=== PATIENT | female | born 1985 | race Caucasian/White ===

== ENCOUNTER 2023-02-01 13:07 | Emergency (ER) | payer OTHER, SELFPAY ==
--- NOTE | ~2023-02-01 | XR_ITS ---
EXAMINATION: XR CHEST CLINICAL INFORMATION: Chest pain, cough COMPARISON: Chest 04/26/2017 TECHNIQUE: 2 views of the chest were obtained. FINDINGS: The lungs are well expanded. No focal consolidation, interstitial pulmonary edema or pneumothorax. No pleural effusion. No significant abnormality is noted involving the heart, mediastinum, bony thorax or soft tissues. XR/XR chest 2V IMPRESSION: No acute cardiopulmonary disease.
[2023-02-01 13:16] VITALS: BP 112/88; PULSE 87; RESP 16; TEMP 36.9; O2SAT 100; BMI 23.9
--- NOTE | 2023-02-01 13:17 | ED.URI ---
HPI - URI/Sore Throat General Chief Complaint: General Medical Stated Complaint: Feeling Sick Related Data Allergies Allergy/AdvReac Type Severity Reaction Status Date / Time diphenhydramine Allergy Unknown ANXIETY Unverified 01/31/20 15:29 [From BENADRYL] latex Allergy Rash Verified 02/01/23 13:16 garlic [GARLIC] AdvReac Severe STOMACH Unverified 01/31/20 15:29 UPSET onion [ONION] AdvReac Severe STOMACH Unverified 01/31/20 15:29 UPSET FOODS WITH ACID AdvReac Severe STOMACH Uncoded 01/31/20 15:29 UPSET PMFSH Social History Social History Advance Directives: No Advance Directives Information Provided: No Physical Exam Vital Signs: Vital Signs: Last Vital Signs Temp 98.4 F 02/01/23 13:16 Pulse 87 02/01/23 13:16 Resp 16 02/01/23 13:16 BP 112/88 02/01/23 13:16 Pulse Ox 100 02/01/23 13:16 O2 Del Method Room Air 02/01/23 13:16 BMI result Body Mass Index 23.9 Course Course Course Narrative: This is an RME: Additional HPI, ROS, PE not included below will be deferred to primary provider. This is a [id number]-bhw-female, with a hx of anxiety, presenting to the ER with complaint of chills, body aches, headaches, sore throat and cough since last night. Reporting chest pain. reporting urinary frequency and some nausea. Plan: labs, chest xray, ekg, UA ordered. Patient eloped prior to being seen by primary provider and receiving results. Medical Decision Making Lab Data 02/01/23 14:29 02/01/23 14:29 Labs: Lab Results 02/01/23 Range/Units 14:29 WBC 5.4 (4.8-10.8) X10*3/uL RBC 3.86 L (4.20-5.50) X10*6/uL Hgb 11.3 L (12.0-16.0) g/dl Hct 35.1 L (37.0-47.0) % MCV 90.9 (80.0-98.0) fL MCH 29.3 (27.0-33.0) pg MCHC 32.2 (31.0-35.0) g/dl RDW 14.1 (11.0-16.0) % Plt Count 285 (160-400) X10*3/uL MPV 10.4 (9.4-12.3) fL Immature Gran % (Auto) 0.4 (0.0-0.4) % Neut % (Auto) 65.0 (45-73) % Lymph % (Auto) 23.2 (20-40) % [place] % (Auto) 9.6 (2-11) % Eos % (Auto) 0.7 (0-4) % Baso % (Auto) 1.1 (0-2) % Lymph # (Auto) 1.3 (1.2-4.9) X10*3/uL [place] # (Auto) 0.5 (0.1-1.2) X10*3/uL Eos # (Auto) 0.0 (0.0-0.4) X10*3/uL Baso # (Auto) 0.1 (0.0-0.2) X10*3/uL Abs Immat Gran (auto) 0.02 (0.00-0.03) X10*3/uL Absolute Neuts (auto) 3.5 (2.0-8.3) x10*3/uL Absolute Nucleated RBC 0.000 (0.0-0.012) X10*3/uL Nucleated RBC % (auto) 0.0 (0.0-0.2) /100WBC Sodium 140 (135-145) mmol/L Potassium 3.7 (3.3-5.1) mmol/L Chloride 108 (96-108) mmol/L Carbon Dioxide 25 (22-29) mmol/L Anion Gap 11 L (12-20) BUN 5 L (9-16) mg/dL Creatinine 0.77 (0.5-1.4) mg/dL Estim Creat Clear Calc 76.8 Estimated GFR > 60 Random Glucose 92 (60-115) mg/dL Calcium 9.3 (8.4-10.2) mg/dL Total Bilirubin 0.5 (0.0-1.0) mg/dL Direct Bilirubin 0.2 (0.0-0.5) mg/dL AST 17 (5-31) U/L ALT 7 (0-31) U/L Alkaline Phosphatase 70 (39-117) U/L Troponin I High Sens < 2.7 (<3.5-17.0) ng/L Total Protein 7.5 (6.5-8.0) g/dL Albumin 4.2 (3.5-5.0) g/dL Urine Color Yellow Urine Appearance Clear Urine pH 6.5 (5.0-9.0) Ur Specific Honor 1.015 (1.005-1.025) Urine Protein Negative (Neg-Trace) mg/dL Urine Glucose (UA) Negative (Negative) mg/dL Urine Ketones Negative (Negative) mg/dL Urine Blood Moderate (2+) H (Negative) Urine Nitrite Negative (Negative) Ur Leukocyte Esterase Trace H (Negative) Urine RBC 11-20 H (0-2) /HPF Urine WBC 0-5 (0-5) /HPF Ur Squamous Epith Cells 6-10 (0-2) /HPF Urine Bacteria Trace (None Seen) Hyaline Casts 0-2 (0-2) /LPF Urine Test NEGATIVE (NEGATIVE) Influenza Type A (PCR) NEGATIVE (Negative) Influenza Type B (PCR) NEGATIVE (Negative) RSV RNA Qual (PCR) NEGATIVE (Negative) SARS-CoV-2 RNA (RT-PCR) NEGATIVE (Negative) Discharge Plan Discharge Clinical Impression: Acute viral syndrome Patient Disposition: Left W/O Completing Treatment Discharge Date/Time: 02/01/23 18:54
--- NOTE | 2023-02-01 13:19 | ECG_ITS ---
Test Reason : chest pain Blood Pressure : / mmHG Vent. Rate : 071 BPM Atrial Rate : 071 BPM P-R Int : 168 ms QRS Dur : 082 ms QT Int : 384 ms P-R-T Axes : 067 063 049 degrees QTc Int : 417 ms Normal sinus rhythm Normal ECG When compared with ECG of 26-APR-2017 12:54, No significant change was found Referred By: Mylene Winters Electronically Signed By:MAJOR WALL
[2023-02-01 14:39] LABS: MANUAL DIFF FLAG NO
[2023-02-01 14:42] LABS: Basophils Absolute Auto 0.1 X10*3/uL (0.0-0.2); Basophils Percent Auto 1.1 % (0-2); Eosinophils Percent Auto 0.7 % (0-4); Hematocrit 35.1 % (37.0-47.0); Hemoglobin 11.3 g/dl (12.0-16.0); Imm Gran Abs Auto 0.02 X10*3/uL (0.00-0.03); Imm Gran Pct Auto 0.4 % (0.0-0.4); Lymphocytes Absolute Auto 1.3 X10*3/uL (1.2-4.9); Lymphocytes Percent Auto 23.2 % (20-40); Mean Corpuscular HGB Conc 32.2 g/dl (31.0-35.0); Mean Corpuscular Hemoglobin 29.3 pg (27.0-33.0); Mean Corpuscular Volume 90.9 fL (80.0-98.0); Mean Platelet Volume 10.4 fL (9.4-12.3); Monocytes Absolute Auto 0.5 X10*3/uL (0.1-1.2); Monocytes Percent Auto 9.6 % (2-11); Neutrophils Absolute Auto 3.5 x10*3/uL (2.0-8.3); Platelet Count 285 X10*3/uL (160-400); Red Blood Count 3.86 X10*6/uL (4.20-5.50); Red Cell Distribution Width 14.1 % (11.0-16.0); White Blood Count 5.4 X10*3/uL (4.8-10.8)
[2023-02-01 14:48] LABS: Appearance Urine Clear; Color Urine Yellow; Glucose Urine UA Negative (Negative); Leukocyte Esterase Urine Trace (Negative); Nitrite Urine Negative (Negative); PH 6.5 (5.0-9.0); Specific Gravity - Urine 1.015 (1.005-1.025); UMIC TRIGGER UACC YES; UPreg QC Valid YES; Urine Blood Moderate (2+) (Negative); Urine Ketones Negative (Negative); Urine Pregnancy NEGATIVE (NEGATIVE); Urine Protein Negative (Neg-Trace)
[2023-02-01 15:07] LABS: Alanine Aminotransferase 7 U/L (0-31); Albumin Level 4.2 g/dL (3.5-5.0); Alkaline Phosphatase 70 U/L (39-117); Anion Gap 11 (12-20); Aspartate Amino Transferase 17 U/L (5-31); Bilirubin Direct 0.2 mg/dL (0.0-0.5); Bilirubin Total 0.5 mg/dL (0.0-1.0); Blood Urea Nitrogen 5 mg/dL (9-16); Calcium 9.3 mg/dL (8.4-10.2); Carbon Dioxide 25 mmol/L (22-29); Chloride 108 mmol/L (96-108); Creatinine Clr Calc Pharmacy 76.8; Estimated Glomerular Filt Rate > 60; Glucose Random 92 mg/dL (60-115); Potassium 3.7 mmol/L (3.3-5.1); Sodium 140 mmol/L (135-145); Total Protein 7.5 g/dL (6.5-8.0)
[2023-02-01 15:19] LABS: Troponin-I High Sensitivity < 2.7 ng/L (<3.5-17.0)
[2023-02-01 15:22] LABS: Bacteria Urine Trace (None Seen); Hyaline Casts Urine 0-2 /LPF (0-2); Influenza A PCR NEGATIVE (Negative); Influenza B PCR NEGATIVE (Negative); Resp Syncy Virus RNA Qual PCR NEGATIVE (Negative); SARS COV2 PCR INHOUSE NEGATIVE (Negative); WBC Urine 0-5 /HPF (0-5)
== END 2023-02-01 18:54 | disposition left against medical advice (07) ==
PROVIDERS: Physician Assistant Medical; Emergency Provider Emergency Medicine
DX: B34.9 Viral infection, unspecified (principal); J02.9 Acute pharyngitis, unspecified; R05.9 Cough, unspecified; R51.9 Headache, unspecified; M79.10 Myalgia, unspecified site; Z20.822 Contact with and (suspected) exposure to COVID-19; Z20.828 Contact with and (suspected) exposure to other viral communicable diseases
CPT/HCPCS: 0241U; 36415; 71046; 80048; 80076; 81001; 81025; 84484; 85025; 93005; 99283

== ENCOUNTER 2024-02-04 18:17 | Emergency (ER) | payer OTHER, SELFPAY ==
[2024-02-04 18:30] VITALS: BP 138/73; PULSE 114; RESP 20; TEMP 36.9; O2SAT 95; O2SAT 99; BMI 25.6
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
[2024-02-04 19:43] VITALS: BP 125/75; PULSE 85; RESP 18; TEMP 36.9; O2SAT 100
--- OUTSIDE RECORDS SUMMARY | 2024-02-04 20:00 | XMS_ITS | Continuity of Care Document ---
Author Organization [facility] Address [address], [place] [address]- Care Team Providers Care Wool Buyer Name Role Cigarette RollerLokesh Denise MD Primary Care Physician Encounter [facility] [place] Date(s): 10/23/21 - [facility] [address], [address] [place], [place] [address] Allergies, Adverse Reactions, Alerts Substance Reaction Severity Status Benadryl Active Latex Active Immunizations Given and Recorded Vaccine Date Status Refusal Reason tetanus/diphtheria/pertussis, acel(Tdap) 12/17/19 Given tetanus/diphtheria/pertussis, acel(Tdap) 1 10/20/12 Given influenza virus vaccine, inactivated 04/12/18 Give n Fluzone (oldterm) 2 06/14/11 Given tetanus-diphtheria toxoids (Td) 3 06/14/11 Given Not Given Vaccine Date Status Refusal Reason influenza virus vaccine, inactivated 02/02/20 Not Given Patient Refuses 1Admin Note: vis given 06/08/11 2Admin Note: vis given 3Admin Note: VIS GIVEN 04/02/2008 Medications Plan B One-Step 1.5 mg oral tablet 1.5 mg, 1, tablet, By Mouth, Once, # 1 tablet, Refills 0, Tot. Refills 0, Soft Stop, 11/04/21 19:04:00 EDT, Route to Pharmacy Electronically, [facility]/pharmacy #[id number], Partial fill upon patient request if the prescription is for a schedule II opioid drug.,... Start Date: 11/04/21 Status: Ordered Sprintec 0.25 mg-35 mcg oral tablet 1 tablet, By Mouth, Daily, Maintenance, # 84 tablet, 2 Refills, Maintenance, 11/04/21 19:11:00 EDT,[facility]/pharmacy #[id number], Partial fill upon patient request if the prescription is for a schedule II opioid drug., 1 tablet By Mouth Daily,x28 days,Instr:Grace Start Date: 11/04/21 Stop Date: 01/27/22 Status: Ordered Problem List Condition Effective Dates Status Health Status Inform ant Bipolar disease, chronic(Confirmed) Active Chronic gastritis(Confirmed) Active GENERALIZED ANXIETY DISORDER(Confirmed) Active Depression, major(Confirmed) 10/21/08 Active H/O psychiatric hospitalizat ion x2(Confirmed) 1, 2 2009 Active PTSD (Managed by [facility])(Confirmed) Active H/O Suicide ideation(Confirmed) 3 Active 1CIS documentation 3CIS documentation Social History Social History Type Response Smoking Status Former smoker, quit more than 30 days ago entered on: 11/04/21 Sex
--- OUTSIDE RECORDS SUMMARY | 2024-02-04 20:00 | XMS_ITS | Continuity of Care Document ---
Author Organization [facility] Address [address] [place] [address]- Care Team Providers Care Risk Intern Name Role Phone Bhavin Mendoza MD Primary Care Physician Encounter [facility] Date(s): 04/18/19 - 05/31/[address] [address] [place] Attending Physician: Bhavin Mendoza MD Admitting Physician: Bhavin Mendoza MD Allergies, Adverse Reactions, Alerts Substance Reaction Severity Status Latex Active Immunizations Given and Recorded Vaccine Date Status Refusal Reason influenza virus vaccine, inactivated 04/12/18 Give n tetanus/diphtheria/pertussis, acel(Tdap) 1 10/20/12 Given Fluzone (oldterm) 2 06/14/11 Given tetanus-diphtheria toxoids (Td) 3 06/14/11 Given 1Admin Note: vis given 06/08/11 2Admin Note: vis given 3Admin Note: VIS GIVEN 04/02/2008 Medications Colace sodium 100 mg oral capsule 100 mg, 1, capsule, By Mouth, 2 times a day, PRN, # 60 capsule, Refills 5, Tot. Refills 5, Maintenance, for constipation, 07/22/17 10:32:13, Route to Pharmacy Electronically, [id number], [facility]/pharmacy #1972 Start Date: 07/22/17 Stop Date: 01/18/18 Status: Ordered cyclobenzaprine 5 mg oral tablet 1 tablet = 5 mg, By Mouth, 3 times a day, for 7 days, # 21 tablet, 0 Refills, Acute 06/05/19 14:19:00 EST, 05/29/19 14:19:00 EST, Tablet, [facility]/pharmacy #1972, 159, cm, 05/29/19 13:36:00 EST, Height, 58.7, kg, 11/19/18 21:43:00 EDT, Dry Weight Start Date: 05/29/19 Stop Date: 06/05/19 Status: Ordered ibuprofen 600 mg oral tablet 600 mg, 1, tablet, By Mouth, 4 times a day, PRN, with food or milk, # 40 tablet, Refills 1, Tot. Refills 1, Maintenance, for pain, 05/29/19 14:18:00 EST, Route to Pharmacy Electronically, [facility]/pharmacy #1972, 159, cm, 05/29/19 13:36:00 EST, Height, 58.... Start Date: 05/29/19 Status: Ordered levonorgestrel 1.5 mg oral tablet 1.5 mg, 1, tablet, By Mouth, Once, # 1 tablet, Refills 0, Tot. Refills 0, Soft Stop, 02/20/19 16:12:31 EDT, Route to Pharmacy Electronically, [id number], [facility]/pharmacy #1972 Start Date: 02/20/19 Status: Ordered metroNIDAZOLE 500 mg oral tablet 1 tablet = 500 mg, By Mouth, Every 12 hours, for 7 days, # 14 tablet, 0 Refills, Acute 06/07/19 11:54:00 EST, 05/31/19 11:54:00 EST, Tablet, [facility]/pharmacy #1972, 159, cm, 05/29/19 13:36:00 EST, Height, 58.7, kg, 11/19/18 21:43:00 EDT, Dry Weight Start Date: 05/31/19 Stop Date: 06/07/19 Status: Ordered omeprazole 20 mg oral enteric coated capsule 1 capsule = 20 mg, By Mouth, Daily, before a meal, # 30 capsule, 11 Refills, Maintenance, 08/08/18 15:03:20 EDT, EC Capsule Start Date: 08/08/18 Stop Date: 08/03/19 Status: Ordered Problem List Condition Effective Dates Status Health Status Inform ant Bipolar disease, chronic(Confirmed) Active GENERALIZED ANXIETY DISORDER(Confirmed) Active Goal-quit smoking(Confirmed) Active Depression, major(Confirmed) 10/21/08 Active PTSD (Managed by [facility])(Confirmed) Active Social History Social History Type Response Smoking Status Former smoker; Tobac co user in household: Yes; Number of years: 10; Total pack years: 5; Started at age: 17; Stopped at age: 28; entered on: 09/06/14 Sex
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
--- OUTSIDE RECORDS SUMMARY | 2024-02-04 20:00 | XMS_ITS | Continuity of Care Document ---
Author Organization [facility] Address [address] [place] [address]- Care Team Providers Care Shrinking Machine Operator Name Role Phone Kelly SUMNER, Bhavin Rodas Primary Care Physician Encounter [facility] [place] Date(s): 07/25/19 - 08/04/[address] [address]- [facility] Attending Physician: Neo Russell Admitting Physician: AdmNeo bowles Referring Physician: AdmtrNeo Allergies, Adverse Reactions, Alerts [...] constipation, 07/22/17 10:32:13, Route to Pharmacy Electronically, [id number], [facility]/pharmacy #1972 Start Date: 07/22/17 Stop Date: 01/18/18 Status: Ordered omeprazole 20 mg oral enteric coated capsule 1 capsule = 20 mg, By Mouth, Daily, before a meal, # 30 capsule, 11 Refills, Maintenance, 08/08/18 15:03:20 EDT, EC Capsule Start Date: 08/08/18 Stop Date: 08/03/19 Status: Ordered Multivitamins with Folic Acid 1 mg oral tablet 1 tablet, By Mouth, Daily, # 90 tablet, 3 Refills, Maintenance, 06/08/19 10:58:00 EST, Tablet, [facility]/pharmacy #1972, 1 tablet By Mouth Daily, 159, cm, 05/29/19 13:36:00 EST, Height, 58.7, kg, 11/19/18 21:43:00 EDT, Dry Weight Start Date: 06/08/19 Status: Ordered Problem List Condition Effective Dates Status Health Status Inform ant H/O Anemia(Confirmed) Active Bipolar disease, chronic(Confirmed) Active GENERALIZED ANXIETY DISORDER(Confirmed) Active H/O gastritis(Confirmed) 1 Active Depression, major(Confirmed) 10/21/08 Active Advanced maternal age in multigravida(Confirmed) Active H/O psychiatric hospitalizat ion x2(Confirmed) 2, 3 2009 Active PTSD (Managed by [facility])(Confirmed) Active (Confirmed) Active H/O Suicide ideation(Confirmed) 4 Active 1acid reflux- GI notes in CIS 2CIS documentation 4CIS documentation Social History Social History Type Response Smoking Status Former smoker; Tobac co user in household: Yes; Number of years: 10; Total pack years: 5; Started at age: 17; Stopped at age: 28; entered on: 09/06/14 Sex Female
--- OUTSIDE RECORDS SUMMARY | 2024-02-04 20:00 | XMS_ITS | Continuity of Care Document ---
Author Organization [facility] Address [address] [place] [address]- Care Team Providers Care Deployment Engineer Name Role Phone Bhavin Mendoza MD Primary Care Physician Encounter [facility] [place] Date(s): 04/19/19 - 05/23/[address] [address]- [facility] Attending Physician: Bhavin Mendoza MD Admitting Physician: [...] constipation, 07/22/17 10:32:13, Route to Pharmacy Electronically, [id number], [facility]/pharmacy #1972 Start Date: 07/22/17 Stop Date: 01/18/18 Status: Ordered levonorgestrel 1.5 mg oral tablet 1.5 mg, 1, tablet, By Mouth, Once, # 1 tablet, Refills 0, Tot. Refills 0, Soft Stop, 02/20/19 16:12:31 EDT, Route to Pharmacy Electronically, [id number], [facility]pharmacy #1972 Start Date: 02/20/19 Status: Ordered omeprazole 20 mg oral enteric [...] Depression, major(Confirmed) 10/21/08 Active PTSD (Managed by [facility])(Confirmed) Active Social History Social History Type Response Smoking Status Former smoker; Tobac co user in household: Yes; Number of years: 10; Total pack years: 5; Started at age: 17; Stopped at age: 28; entered on: 09/06/14 Sex
--- OUTSIDE RECORDS SUMMARY | 2024-02-04 20:00 | XMS_ITS | Continuity of Care Document ---
Author Organization [facility] Address [address] [place] [address]- Care Team Providers Care Cash Teller Name Role Active Directory Systems AdministratorLokesh Denise MD Primary Care Physician Encounter [facility] R [id number] Date(s): 08/31/23 - 10/05/[address] [address] Attending Physician: Joel Montero MD Admitting Physician: Joel Montero MD Allergies, Adverse Reactions, Alerts Substance Reaction [...] given 3Admin Note: VIS GIVEN 04/02/2008 Medications metroNIDAZOLE 500 mg oral tablet 1 tablet = 500 mg, By Mouth, Every 12 hours, # 14 tablet, 0 Refills, Soft Stop, 09/07/23 11:46:00 EDT, Tablet, [facility]/pharmacy #[id number], Partial fill upon patient request if the prescription is for a schedule II opioid drug., 158, cm, 09/07/23 11:13:00 EDT,... Start Date: 09/07/23 Stop Date: 09/14/23 Status: Ordered Problem List Condition Confirmation Course Effective Dates Status H ealth Status Informant Bipolar disease, chronic Confirmed Active Chronic gastritis Confirmed Active GENERALIZED ANXIETY DISORDER Confirmed Active Depression, major Confirmed 10/21/08 Active H/O psychiatric hospitalization x2 1, 2 Confirmed 2009 Active PTSD (Managed by [facility]) Confirmed Active H/O Suicide ideation 3 Confirmed Active 1CIS documentation 3CIS documentation Social History Social History Type Response Smoking Status Former smoker, quit more than 30 days ago entered on: 11/04/21 Sex Patient Care team information Care Team Personnel Name: Banker SUMNER, Lokesh Lemus Position: [facility] Physician - Primary Care Member Role: PCP Address: Address: [address] [place] [address] Name: Bhavna VEGA, Jose Quintana Position: [facility] RN Member Role: Primary Care Nurse Care Team Related Persons Name: KRISTAL FARMER Address: [address] [place] [address] Name: DANIEL FARMER Address: [address] [place] [address] Name: KYUNG SHERIFF Address: [place] [address] Name: JON MIGUEL Address: [address] [place] [address] Name: GUSTAVO GAMEZ Address: [address] Address: [address] [place] [address]
--- OUTSIDE RECORDS SUMMARY | 2024-02-04 20:00 | XMS_ITS | Continuity of Care Document ---
Author Organization [facility] Address [address] [place] [address]- Care Team Providers Care Wellness Educator Name Role Phone Bhavin Mendoza MD Primary Care Physician Encounter [facility] [place] Date(s): 02/05/20 - 03/06/[address] [address]- [facility] Allergies, Adverse Reactions, Alerts Substance Reaction Severity [...] constipation, 07/22/17 10:32:13, Route to Pharmacy Electronically, [id number], [facility]/pharmacy #1972 Start Date: 07/22/17 Stop Date: 01/18/18 Status: Ordered famotidine 10 mg oral tablet 1 tablet = 10 mg, By Mouth, 2 times a day, # 28 tablet, 0 Refills, Maintenance, 08/03/20 16:14:00 EDT, Tablet, [facility], 158, cm, 12/17/19 15:52:00 EDT, Height, 62, kg, 07/26/19 14:27:00 EDT, Dry Weight Start Date: 12/17/19 Status: Ordered ferrous sulfate 325 mg oral tablet 1 tablet = 325 mg, By Mouth, 3 times a day, # 120 tablet, 2 Refills, Maintenance, 01/04/20 8:50:00 EDT, [facility], 158, cm, 01/03/20 13:07:00 EDT, Height, 73.2, kg, 12/27/19 21:44:00 EDT, Dry Weight Start Date: 01/04/20 Status: Ordered omeprazole 20 mg oral enteric [...] Effective Dates Status Health Status Inform ant Anemia in (Confirmed) Active Bipolar disease, chronic(Confirmed) Active GENERALIZED ANXIETY DISORDER(Confirmed) Active H/O gastritis(Confirmed) 1 Active Depression, major(Confirmed) 10/21/08 Active Advanced maternal age in multigravida(Confirmed) Active H/O psychiatric hospitalizat ion x2(Confirmed) 2, 3 2009 Active PTSD (Managed by [facility])(Confirmed) Active (Confirmed) Active H/O Suicide ideation(Confirmed) 4 Active 1acid reflux- GI notes in CIS 2CIS documentation 99897/2010 4CIS documentation Social History Social History Type Response Smoking Status Former smoker; Tobac co user in household: Yes; Number of years: 10; Total pack years: 5; Started at age: 17; Stopped at age: 28; entered on: 09/06/14 Sex
--- OUTSIDE RECORDS SUMMARY | 2024-02-04 20:00 | XMS_ITS | Continuity of Care Document ---
Author Organization [facility] Address [address] [place] [address]- Care Team Providers Care Fire Chief Name Role Phone Bhavin Mendoza MD Primary Care Physician Encounter [facility] [place] Date(s): 03/17/19 - 05/03/[address] [address]- [facility] Attending Physician: Ashlee Valverde MD Admitting Physician: Ashlee Valverde MD Allergies, Adverse Reactions, Alerts Substance Reaction [...] constipation, 07/22/17 10:32:13, Route to Pharmacy Electronically, [id number], [facility]/pharmacy #1972 Start Date: 07/22/17 Stop Date: 01/18/18 Status: Ordered levonorgestrel 1.5 mg oral tablet 1.5 mg, 1, tablet, By Mouth, Once, # 1 tablet, Refills 0, Tot. Refills 0, Soft Stop, 02/20/19 16:12:31 EDT, Route to Pharmacy Electronically, [id number], [facility] Start Date: 02/20/19 Status: Ordered [...] Depression, major(Confirmed) 10/21/08 Active PTSD (Managed by [facility])(Confirmed) Active Social History Social History Type Response Smoking Status Former smoker; Tobac co user in household: Yes; Number of years: 10; Total pack years: 5; Started at age: 17; Stopped at age: 28; entered on: 09/06/14 Sex
--- OUTSIDE RECORDS SUMMARY | 2024-02-04 20:00 | XMS_ITS | Continuity of Care Document ---
Author Organization [facility] Address [address] [place] [address]- Care Team Providers Care Mechanic Insulator Name Role Sock Knitting Machine OperatorLokesh Denise MD Primary Care Physician Encounter [facility] Date(s): 10/05/22 - 11/04/[address] [address] Allergies, Adverse Reactions, Alerts Substance Reaction Severity [...] vis given 3Admin Note: VIS GIVEN 04/02/2008 Problem List Condition Confirmation Course Effective Dates Status H ealth Status Informant Bipolar disease, chronic Confirmed Active Chronic gastritis Confirmed Active GENERALIZED ANXIETY DISORDER Confirmed Active Depression, major Confirmed 10/21/08 Active H/O psychiatric hospitalization x2 1, 2 Confirmed 2009 Active PTSD (Managed by [facility]) Confirmed Active H/O Suicide ideation 3 Confirmed Active 1CIS documentation 3CIS documentation Social History Social History Type Response Smoking Status Former smoker, quit more than 30 days ago entered on: 11/04/21 Sex Patient Care team information Care Team Personnel Name: Lokesh Denise MD Position: S Physician - Primary Care Member Role: PCP Address: Address: [address] [place] [id number] Name: Bhavna VEGA, Jose Quintana Position: S RN Member Role: Primary Care Nurse Care Team Related Persons Name: SHAYY FARMERJARVIS Address: home [address] [place] [address] Name: DANIEL FARMER Address: home [address] [place] [address] Name: KYUNG SHERIFF Address: [place] [address] Name: JON MIGUEL Address: home [address] [place] [address] Name: GUSTAVO GAMEZ Address: [address] Address: home [address] [place] [address]
--- OUTSIDE RECORDS SUMMARY | 2024-02-04 20:00 | XMS_ITS | Continuity of Care Document ---
Author Organization [facility] Address [address] [place] [address]- Care Team Providers Care Service Associate Name Role Phone Bhavin Mendoza MD Primary Care Physician [place] [facility] [place]14/[place] - 06/14/[address] [address]- [facility] Discharge Disposition: A-D/C Home Attending Physician: Sunny Marsh MD Admitting Physician: Sunny Marsh MD Referring Physician: Not on Staff, Referring MD Allergies, Adverse Reactions, Alerts Substance Reaction [...] constipation, 07/22/17 10:32:13, Route to Pharmacy Electronically, [id number], [facility]/pharmacy #1972 Start Date: 07/22/17 Stop Date: 01/18/18 Status: Ordered ibuprofen 600 mg oral tablet 600 mg, 1, tablet, By Mouth, 4 times a day, PRN, with food or milk, # 40 tablet, Refills 1, Tot. Refills 1, Maintenance, for pain, 05/29/19 14:18:00 EST, Route to Pharmacy Electronically, [facility]/pharmacy #1972, 159, cm, 05/29/19 13:36:00 EST, Height, 58.... Start Date: 05/29/19 Status: Ordered levonorgestrel 1.5 mg oral tablet 1.5 mg, 1, tablet, By Mouth, Once, # 1 tablet, Refills 0, Tot. Refills 0, Soft Stop, 02/20/19 16:12:31 EDT, Route to Pharmacy Electronically, [id number], [facility]/pharmacy #1972 Start Date: 02/20/19 Status: Ordered omeprazole [...] 3 Refills, Maintenance, 06/08/19 10:58:00 EST, Tablet, [facility]/pharmacy #1972, 1 tablet By Mouth Daily, 159, cm, 05/29/19 13:36:00 EST, Height, 58.7, kg, 11/19/18 21:43:00 EDT, Dry Weight Start Date: 06/08/19 Status: Ordered Problem List Condition Effective Dates Status Health Status Inform ant Bipolar disease, chronic(Confirmed) Active GENERALIZED ANXIETY DISORDER(Confirmed) Active Goal-quit smoking(Confirmed) Active Depression, major(Confirmed) 10/21/08 Active PTSD (Managed by [facility])(Confirmed) Active Results Radiology Reports * Exam Date Time Procedure Performing Provider Status 06/14/19 10:38 AM Chest 2 Views Frontal and Lat Bebeto Esquivel (Verified) Notes: (Chest 2 Views Frontal and Lat) Reason For Exam: Angina RESULT: Chest 2 Views Frontal and Lat Chest 2 Views Frontal and Lat INDICATION: Palpitations and left-sided chest pain. COMPARISON: 10/29/2016. FINDINGS: LINES AND TUBES: None. LUNGS AND PLEURA: Clear lungs. Normal pulmonary vascularity. No pleural effusion. No pneumothorax. HEART, MEDIASTINUM AND MAIKEL: Heart is normal in size. Normal mediastinal and hilar contour. BONES AND SOFT TISSUES: No acute abnormality. IMPRESSION: No acute abnormality. I have personally reviewed the images and I agree with this report. WSN: [id number] Dictated By: Graeme Gomez MD Dictated Date/Time: 06/14/19 10:49 a Reviewed By: Houston Rodrigues MD Signed By: Houston Rodrigues MD Signed Date/Time: 06/14/19 10:54 am Transcribed By: CLARIBEL Transcribed Date/Time: 06/14/19 10:43 am Vital Signs Most recent to oldest [Reference Range]: 1 2 3 Height 158 cm (06/14/19 8:26 AM) Weight 59.5 kg (06/14/19 8:26 AM) Oxygen Saturation [94-100 %] 100 % (06/14/19 9:32 AM) 100 % (06/14/19 8:26 AM) 100 % (06/14/19 8:23 AM) Pulse Rate [55-90 bpm] 101 bpm *H* (06/14/19 9:32 AM) 106 bpm *H* (06/14/19 8:26 AM) 114 bpm *H* (06/14/19 8:23 AM) Blood Pressure [90-138/55-84 mm Hg] 119/63mm Hg (06/14/19 9:32 AM) 104/68mm Hg (06/14/19 8:26 AM) Respiratory Rate [16-30 br/min] 17 br/min (06/14/19 9:32 AM) 18 br/min (06/14/19 8:26 AM) Temperature [96.8-100.4 DegF] 97.8 DegF (06/14/19 8:26 AM) Mode of Delivery (Oxygen) Room air (06/14/19 9:32 AM) Room air (06/14/19 8:26 AM) Room air (06/14/19 8:23 AM) Blood pressure sites Arm, left (06/14/19 9:32 AM) Arm, left (06/14/19 8:26 AM) Temperature Route Oral (06/14/19 8:26 AM) Dry Weight 59.5 kg (06/14/19 8:26 AM) Weight Obtained Via Standing scale (06/14/19 8:26 AM) Dry Weight Obtained Via Standing scale (06/14/19 8:26 AM) Social History Social History Type Response Smoking Status Former smoker; Tobac co user in household: Yes; Number of years: 10; Total pack years: 5; Started at age: 17; Stopped at age: 28; entered on: 09/06/14 Sex
--- OUTSIDE RECORDS SUMMARY | 2024-02-04 20:00 | XMS_ITS | Continuity of Care Document ---
Author Organization [facility] Address [address] [place] [address]- Care Team Providers Care Manufacturing Engineering Director Name Role Embedded Software Programmer MD, Lokesh Lemus Primary Care Physician [phone] Encounter [facility] Date(s): 07/09/20 - 09/04/[address] [address] Attending Physician: Alexandra Ramesh CNM Admitting Physician: Alexandra Ramesh CNM Allergies, Adverse Reactions, Alerts Substance Reaction Severity [...] constipation, 07/22/17 10:32:13, Route to Pharmacy Electronically, [id number], [facility]/pharmacy #1972 Start Date: 07/22/17 Stop Date: 01/18/18 Status: Ordered famotidine 10 mg oral tablet 1 tablet = 10 mg, By Mouth, 2 times a day, # 28 tablet, 0 Refills, Maintenance, 12/17/19 16:14:00 EDT, Tablet, [facility], 158, cm, [...] 2, 3 2009 Active PTSD (Managed by [facility])(Confirmed) Active (Confirmed) Active H/O Suicide ideation(Confirmed) 4 Active 1acid reflux- GI notes in CIS 2CIS documentation 4CIS documentation Social History Social History Type Response Smoking Status Former smoker; Tobac co user in household: Yes; Number of years: 10; Total pack years: 5; Started at age: 17; Stopped at age: 28; entered on: 09/06/14 Sex
--- OUTSIDE RECORDS SUMMARY | 2024-02-04 20:00 | XMS_ITS | Continuity of Care Document ---
Author Organization [facility] Address [address] [place] [address]- Care Team Providers Care Guide Changer Name Role Phone Kelly SUMNER, Bhavin Rodas Primary Care Physician Encounter [facility] [place] Date(s): 06/08/19 - 06/18/[address] [address]- [facility] Attending Physician: Neo Russell Admitting Physician: Neo Russell Referring Physician: Neo Russell Allergies, Adverse Reactions, Alerts Substance Reaction Severity [...] constipation, 07/22/17 10:32:13, Route to Pharmacy Electronically, [id number], [facility]/pharmacy #1972 Start Date: 07/22/17 Stop Date: 01/18/18 Status: Ordered ibuprofen 600 mg oral tablet 600 mg, 1, tablet, By Mouth, 4 times a day, PRN, with food or milk, # 40 tablet, Refills 1, Tot. Refills 1, Maintenance, for pain, 05/29/19 14:18:00 EST, Route to Pharmacy Electronically, [facility]/pharmacy #1972, 159, cm, 05/29/19 13:36:00 EST, Height, 58.... Start Date: 05/29/19 Status: Ordered levonorgestrel 1.5 mg oral tablet 1.5 mg, 1, tablet, By Mouth, Once, # 1 tablet, Refills 0, Tot. Refills 0, Soft Stop, 02/20/19 16:12:31 EDT, Route to Pharmacy Electronically, [id number], [facility]/pharmacy #1972 Start Date: 02/20/19 Status: Ordered omeprazole [...] 3 Refills, Maintenance, 06/08/19 10:58:00 EST, Tablet, [facility]/pharmacy #1972, 1 tablet By Mouth Daily, 159, cm, 05/29/19 13:36:00 EST, Height, 58.7, kg, 11/19/18 21:43:00 EDT, Dry Weight Start Date: 06/08/19 Status: Ordered Problem List Condition Effective Dates Status Health Status Inform ant Bipolar disease, chronic(Confirmed) Active GENERALIZED ANXIETY DISORDER(Confirmed) Active Goal-quit smoking(Confirmed) Active Depression, major(Confirmed) 10/21/08 Active PTSD (Managed by [facility])(Confirmed) Active Social History Social History Type Response Smoking Status Former smoker; Tobac co user in household: Yes; Number of years: 10; Total pack years: 5; Started at age: 17; Stopped at age: 28; entered on: 09/06/14 Sex
--- OUTSIDE RECORDS SUMMARY | 2024-02-04 20:00 | XMS_ITS | Continuity of Care Document ---
Author Organization [facility] Address [address] [place] [address]- Care Team Providers Care Store Sales Consultant Name Role Phone Kelly SUMNER, Bhavin Rodas Primary Care Physician Encounter [facility] [place] Date(s): 01/11/20 - 02/17/[address] [address]- [facility] Attending Physician: Not on Staff, Attending MD Allergies, Adverse Reactions, Alerts Substance Reaction [...] constipation, 07/22/17 10:32:13, Route to Pharmacy Electronically, [id number], [facility] Start Date: 07/22/17 Stop Date: 01/18/18 Status: Ordered famotidine 10 mg oral tablet 1 tablet = 10 mg, By Mouth, 2 times a day, # 28 tablet, 0 Refills, Maintenance, 12/17/19 16:14:00 EDT, Tablet, [facility]/pharmacy #1972, 158, cm, 12/17/19 15:52:00 EDT, Height, [...] Dry Weight Start Date: 01/04/20 Status: Ordered ibuprofen 600 mg oral tablet 600 mg, 1, tablet, By Mouth, Every 6 hours, PRN, # 30 tablet, Refills 1, Tot. Refills 1, Acute 02/23/20 15:47:00 EDT, Pain , Moderate, 02/03/20 15:47:00 EDT, Route to Pharmacy Electronically, [facility]/pharmacy #[id number], 158, cm, 02/03/20 15:36:00 EDT, Height,... Start Date: 02/03/20 Stop Date: 02/23/20 Status: Ordered omeprazole 20 mg oral enteric coated capsule 1 capsule = 20 mg, By Mouth, Daily, before a meal, # 30 capsule, 11 Refills, Maintenance, 08/08/18 15:03:20 EDT, EC Capsule Start Date: 08/08/18 Stop Date: 08/03/19 Status: Ordered oxyCODONE 5 mg oral tablet 5 mg, 1, tablet, By Mouth, Every 6 hours, PRN, # 12 tablet, Refills 0, Tot. Refills 0, Acute 02/23/20 15:47:00 EDT, as needed for pain, 02/03/20 15:47:00 EDT, Route to Pharmacy Electronically, [facility]/pharmacy #[id number], Partial fill upon patient request, 158... Start Date: 02/03/20 Stop Date: 02/23/20 Status: Ordered Multivitamins with Folic Acid 1 mg oral tablet 1 tablet, By Mouth, Daily, # 90 tablet, 3 Refills, Maintenance, 06/08/19 10:58:00 EST, Tablet, [facility]/pharmacy #1972, 1 tablet By Mouth Daily, 159, cm, 05/29/19 13:36:00 EST, Height, 58.7, kg, 11/19/18 21:43:00 EDT, Dry Weight Start Date: 06/08/19 Status: Ordered simethicone 80 mg oral tablet 1 tablet = 80 mg, Chew, 3 times a day after meals, PRN as needed for gas, # 60 tablet, 0 Refills, Acute 02/23/20 15:47:00 EDT, 02/03/20 15:47:00 EDT, Tablet, [facility]/pharmacy #[id number], 158, cm, 02/03/20 15:36:00 EDT, Height, 73, kg, 02/01/20 9:00:00 EDT, Dry... Start Date: 02/03/20 Stop Date: 02/23/20 Status: Ordered Problem List Condition Effective Dates Status Health Status Inform ant Anemia in (Confirmed) Active Bipolar disease, chronic(Confirmed) Active GENERALIZED ANXIETY DISORDER(Confirmed) Active H/O gastritis(Confirmed) 1 Active Depression, major(Confirmed) 10/21/08 Active Advanced maternal age in multigravida(Confirmed) Active H/O psychiatric hospitalizat ion x2(Confirmed) 2, 3 2009 Active PTSD (Managed by [facility])(Confirmed) Active (Confirmed) Active H/O Suicide ideation(Confirmed) 4 Active 1acid reflux- GI notes in CIS 2CIS documentation 4CIS documentation Social History Social History Type Response Smoking Status Former smoker; Tobac co user in household: Yes; Number of years: 10; Total pack years: 5; Started at age: 17; Stopped at age: 28; entered on: 09/06/14 Sex
--- OUTSIDE RECORDS SUMMARY | 2024-02-04 20:00 | XMS_ITS | Continuity of Care Document ---
Author Organization [facility] Address [address] [place] [address]- Care Team Providers Care Chip Drier Name Role Undercollar MakerLokesh Denise MD Primary Care Physician Encounter [facility] Date(s): 08/09/23 - 09/08/[address] [address] Allergies, Adverse Reactions, Alerts Substance [...] Refills, Soft Stop, 09/07/23 11:46:00 EDT, Tablet, [id number], Partial fill upon patient request if the [...] 2 Confirmed 2009 Active PTSD (Managed by [facility]) Confirmed Active H/O Suicide ideation 3 Confirmed Active 1CIS documentation 3CIS documentation Social History Social History Type Response Smoking Status Former smoker, quit more than 30 days ago entered on: 11/04/21 Sex Patient Care team information Care Team Personnel Name: Banker SUMNER, Lokesh Lemus Position: [facility] Physician - Primary Care Member Role: PCP Address: Address: [address] [place] [address] Name: Bhavna VEGA, Jose Quintana Position: [facility] RN Member Role: Primary Care Nurse Care Team Related Persons Name: KRISTAL FARMER Address: home [address] [place] [address] Name: DANIEL FARMER Address: home [address] [place] [address] Name: KYUNG SHERIFF Address: [place] [address] Name: JON MIGUEL Address: home [address] [place] [address] Name: GUSTAVO GAMEZ Address: [address] Address: home [address] [place] [address]
--- OUTSIDE RECORDS SUMMARY | 2024-02-04 20:00 | XMS_ITS | Continuity of Care Document ---
Author Organization [facility] Address [address] [place] [address]- Care Team Providers Care Utility Systems Repairer Operator Name Role Feather Curling Machine Operator , Lokesh Lemus Primary Care Physician [facility] Date(s): 11/[facility] - [facility] [address] [address] Attending Physician: Not on Staff, Attending MD [...] Note: VIS GIVEN 04/02/2008 Problem List Condition Effective Dates Status Health Status Inform ant Bipolar disease, chronic(Confirmed) Active Chronic gastritis(Confirmed) Active GENERALIZED ANXIETY DISORDER(Confirmed) Active Depression, major(Confirmed) 10/21/08 Active H/O psychiatric hospitalizat ion x2(Confirmed) 1, 2 2009 Active PTSD (Managed by [facility])(Confirmed) Active H/O Suicide ideation(Confirmed) 3 Active 1CIS documentation 3CIS documentation Social History Social History Type Response Smoking Status 5-9 cigarettes (betw een 1/4 to 1/2 pack)/day in last 30 days; Interested in cessation: No entered on: 11/03/20 Sex
--- OUTSIDE RECORDS SUMMARY | 2024-02-04 20:00 | XMS_ITS | Continuity of Care Document ---
Author Organization [facility] Address [address] [place] [address]- Care Team Providers Care Hr Clerk Name Role Paster OperatorLokesh Denise MD Primary Care Physician [phone] Encounter [facility] [place] Date(s): 11/30/22 - 12/30/[address] [address] Allergies, Adverse Reactions, Alerts Substance Reaction [...] 2 Confirmed 2009 Active PTSD (Managed by [facility]) Confirmed Active H/O Suicide ideation 3 Confirmed Active 1CIS documentation 3CIS documentation Social History Social History Type Response Smoking Status Former smoker, quit more than 30 days ago entered on: 11/04/21 Sex Patient Care team information Care Team Personnel Name: Lokesh Denise MD Position: [facility] Physician - Primary Care Member Role: PCP Address: Address: [address] [place] [address] Name: Bhavna VEGA, Jose Quintana Position: S RN Member Role: Primary Care Nurse Care Team Related Persons Name: KRISTAL FARMER Address: home [address] [place] [address] Name: DANIEL FARMER Address: [address] [place] [address] Name: KYUNG SHERIFF Address: [place] [address] Name: JON MIGUEL Address: home [address] [place] [address] Name: GUSTAVO GAMEZ Address: [address] Address: [address] [place] [address] [place]
--- OUTSIDE RECORDS SUMMARY | 2024-02-04 20:00 | XMS_ITS | Continuity of Care Document ---
Author Organization [facility] Address [address] [place] [address]- Care Team Providers Care Wool Sorter Name Role Technical WriterLokesh Denise MD Primary Care Physician [place] [facility] [place] [facility] [place] [id number] Date(s): 10/01/22 - 10/31/[address] [address] Attending Physician: Admtr, Neo Allergies, Adverse Reactions, Alerts Substance Reaction Severity [...] 2 Confirmed 2009 Active PTSD (Managed by [facility]) Confirmed Active H/O Suicide ideation 3 Confirmed Active 1CIS documentation 3CIS documentation Social History Social History Type Response Smoking Status Former smoker, quit more than 30 days ago entered on: 11/04/21 Sex Patient Care team information Care Team Personnel Name: Lokesh Denise MD Position: S Physician - Primary Care Member Role: PCP Address: Address: [address] [place] [address]- Name: Bhavna RN, Jose Quintana Position: S RN Member Role: Primary Care Nurse Care Team Related Persons Name: SHAYY FARMERJARVIS Address: [address] [place] [address] Name: FARMERSHAYY GUEVARAEDES Address: home [address] [place] [address] Name: KYUNG SHERIFF Address: [place] [address] Name: JON MIGUEL Address: [address] [place] [address] Name: GUSTAVO GAMEZ Address: [address] Address: [address] [place] [address]
--- OUTSIDE RECORDS SUMMARY | 2024-02-04 20:00 | XMS_ITS | Continuity of Care Document ---
Author Organization [facility] Address [address] [place] [address]- Care Team Providers Care Surgical Supervisor Name Role Ply SplicerLokesh Denise MD Primary Care Physician [phone] En[place] [facility] [id number] Date(s): 09/13/22 - 10/21/[address] [address] Attending Physician: Rubio LANTIGUA, Zulema Admitting Physician: Rubio LANTIGUA, Zulema Allergies, Adverse Reactions, Alerts Substance Reaction Severity [...] H/O psychiatric hospitalization x2 1, 2 Confirmed 2010 Active PTSD (Managed by [facility]) Confirmed Active H/O Suicide ideation 3 Confirmed Active 1CIS documentation 3CIS documentation Social History Social History Type Response Smoking Status Former smoker, quit more than 30 days ago entered on: 11/04/21 Sex Patient Care team information Care Team Personnel Name: Lokesh Denise MD Position: [facility] Physician - Primary Care Member Role: PCP Address: Address: [address] [place] [address]- Name: Bhavna VEGA, Jose Quintana Position: [facility] RN Member Role: Primary Care Nurse Care Team Related Persons Name: SHAYY FARMERJARVIS Address: home [address] [place] [address] Name: DANIEL FARMER Address: [address] [place] [address] Name: KYUNG SHERIFF Address: [place] [address] Name: JON MIGUEL Address: home [address] [place] [address] Name: GUSTAVO GAMEZ Address: [address] Address: [address] [place] [address]
--- OUTSIDE RECORDS SUMMARY | 2024-02-04 20:00 | XMS_ITS | Continuity of Care Document ---
Author Organization [facility] Address [address] [place] [address]- Care Team Providers Care Fuse Assembler Name Role Phone Kelly SUMNER, Bhavin Rodas Primary Care Physician Encounter [facility] Date(s): 09/24/19 - 12/15/[address] [address] [facility] Attending Physician: Not on Staff, Attending [...] constipation, 07/22/17 10:32:13, Route to Pharmacy Electronically, [id number], [facility] Start Date: 07/22/17 Stop Date: 01/18/18 Status: Ordered MetroGel 1% topical gel 1 application, Topically, Daily, # 60 Gm, 0 Refills, Maintenance, 09/24/19 16:41:00 EDT, Gel, [facility], 1 application Topically Daily,x7 days, 158, cm, 09/24/19 15:15:00 EDT, Height, 62, kg, 07/26/19 14:27:00 EDT, Dry Weight Start Date: 09/24/19 Stop Date: 10/01/19 Status: Ordered omeprazole 20 mg oral enteric coated capsule 1 capsule = 20 mg, By Mouth, Daily, before a meal, # 30 capsule, 11 Refills, Maintenance, 08/08/18 15:03:20 EDT, EC Capsule Start Date: 08/08/18 Stop Date: 08/03/19 Status: Ordered AD oral tablet 1 tablet, By Mouth, Daily, # 90 tablet, 3 Refills, Maintenance, 09/24/19 15:43:00 EDT, Tablet, [facility], 1 tablet By Mouth Daily, 158, cm, 09/24/19 15:15:00 EDT, Height, 62, kg, 07/26/19 14:27:00 EDT, Dry Weight Start Date: 09/24/19 Status: Ordered Multivitamins with Folic Acid 1 [...] 2, 3 2009 Active PTSD (Managed by [facility])(Confirmed) Active (Confirmed) Active H/O Suicide ideation(Confirmed) 4 Active 1acid reflux- GI notes in CIS 2CIS documentation 00308/2010 4CIS documentation Social History Social History Type Response Smoking Status Former smoker; Tobac co user in household: Yes; Number of years: 10; Total pack years: 5; Started at age: 17; Stopped at age: 28; entered on: 4/24/15 Sex Female
--- OUTSIDE RECORDS SUMMARY | 2024-02-04 20:00 | XMS_ITS | Continuity of Care Document ---
Author Organization [facility] Address [address] [place] [address]- Care Team Providers Care Electromechanical Technician Name Role Phone Prior Palmer COLVIN Primary Care Physician [phone] [facility] [place] - 05/21/[address] [address] Attending Physician: Not on Staff, [...] constipation, 07/22/17 10:32:13, Route to Pharmacy Electronically, [id number], [facility] Start Date: 07/22/17 Stop Date: [...] reflux- GI notes in CIS 2CIS documentation 67767/2010 4CIS documentation Social History Social History Type Response Smoking Status Former smoker; Tobac co user in household: Yes; Number of years: 10; Total pack years: 5; Started at age: 17; Stopped at age: 28; entered on: 09/06/14 Sex
--- OUTSIDE RECORDS SUMMARY | 2024-02-04 20:00 | XMS_ITS | Continuity of Care Document ---
Author Organization [facility] Address [address] [place] [address]- Care Team Providers Care Electric Arc Furnace Operator Name Role Phone Kelly SUMNER, Bhavin Rodas Primary Care Physician Encounter [facility] [place] [facility] R [id number] Date(s): 05/29/19 - 06/08/[address] [address]- [facility] Attending Physician: Admtr, Ar8 Allergies, Adverse Reactions, Alerts Substance Reaction Severity [...] constipation, 07/22/17 10:32:13, Route to Pharmacy Electronically, [id number], [facility]/pharmacy #1972 Start Date: 07/22/17 Stop Date: 01/18/18 Status: Ordered ibuprofen 600 mg oral tablet 600 mg, 1, tablet, By Mouth, 4 times a day, PRN, with food or milk, # 40 tablet, Refills 1, Tot. Refills 1, Maintenance, for pain, 05/29/19 14:18:00 EST, Route to Pharmacy Electronically, [facility]/pharmacy #1972, 159, cm, 05/29/19 13:36:00 EST, Height, 58.... Start Date: 05/29/19 Status: Ordered levonorgestrel 1.5 mg oral tablet 1.5 mg, 1, tablet, By Mouth, Once, # 1 tablet, Refills 0, Tot. Refills 0, Soft Stop, 02/20/19 16:12:31 EDT, Route to Pharmacy Electronically, [id number], [facility]/pharmacy #1972 Start Date: 02/20/19 Status: Ordered omeprazole [...] 3 Refills, Maintenance, 06/08/19 10:58:00 EST, Tablet, [facility]/pharmacy #1972, 1 tablet By Mouth Daily, 159, cm, 05/29/19 13:36:00 EST, Height, 58.7, kg, 11/19/18 21:43:00 EDT, Dry Weight Start Date: 06/08/19 Status: Ordered Problem List Condition Effective Dates Status Health Status Inform ant Bipolar disease, chronic(Confirmed) Active GENERALIZED ANXIETY DISORDER(Confirmed) Active Goal-quit smoking(Confirmed) Active Depression, major(Confirmed) 10/21/08 Active PTSD (Managed by [facility])(Confirmed) Active Social History Social History Type Response Smoking Status Former smoker; Tobac co user in household: Yes; Number of years: 10; Total pack years: 5; Started at age: 17; Stopped at age: 28; entered on: 09/06/14 Sex
--- OUTSIDE RECORDS SUMMARY | 2024-02-04 20:00 | XMS_ITS | Continuity of Care Document ---
Author Organization [facility] Address [address] [place] [address]- Care Team Providers Care Tool And Die Maker Level Five Name Role Phone Prior Palmer COLVIN Primary Care Physician Encounter [facility] Date(s): 04/21/20 - 05/21/[address] [address]- Attending Physician: Neo Russell Admitting Physician: Neo [...] constipation, 07/22/17 10:32:13, Route to Pharmacy Electronically, [id number], [facility]/pharmacy #1972 Start Date: 07/22/17 Stop Date: [...] 2, 3 2009 Active PTSD (Managed by [facility])(Confirmed) Active (Confirmed) Active H/O Suicide ideation(Confirmed) 4 Active 1acid reflux- GI notes in CIS 2CIS documentation 6775402/2011 4CIS documentation Social History Social History Type Response Smoking Status Former smoker; Tobac co user in household: Yes; Number of years: 10; Total pack years: 5; Started at age: 17; Stopped at age: 28; entered on: 09/06/14 Sex
--- OUTSIDE RECORDS SUMMARY | 2024-02-04 20:00 | XMS_ITS | Continuity of Care Document ---
Author Organization [facility] Address [address] [place] [address]- Care Team Providers Care Health Information Specialist Name Role Leak Detection Engineer , Lokesh Lemus Primary Care Physician Encounter [facility] Date(s): 02/05/21 - 03/11/[address] [address]- Attending Physician: Not on Staff, Attending MD [...] 1, 2 2009 Active PTSD (Managed by [facility])(Confirmed) Active H/O Suicide ideation(Confirmed) 3 Active 1CIS documentation 3CIS documentation Social History Social History Type Response Smoking Status 5-9 cigarettes (betw een 1/4 to 1/2 pack)/day in last 30 days; Interested in cessation: No entered on: 11/03/20 Sex
--- OUTSIDE RECORDS SUMMARY | 2024-02-04 20:00 | XMS_ITS | Continuity of Care Document ---
Author Organization [facility] Address [address] [place] [address]- Care Team Providers Care Tile Professional Name Role Phone Prior Palmer COLVIN Primary Care Physician [phone] Encounter [facility] Date(s): 03/31/20 - 04/30/[address] [address] Allergies, Adverse Reactions, Alerts Substance Reaction [...] constipation, 07/22/17 10:32:13, Route to Pharmacy Electronically, [id number], [facility] Start Date: 07/22/17 Stop Date: [...] 2, 3 2009 Active PTSD (Managed by [facility])(Confirmed) Active (Confirmed) Active H/O Suicide ideation(Confirmed) 4 Active 1acid reflux- GI notes in CIS 2CIS documentation 19538/2010 4CIS documentation Social History Social History Type Response Smoking Status Former smoker; Tobac co user in household: Yes; Number of years: 10; Total pack years: 5; Started at age: 17; Stopped at age: 28; entered on: 09/06/14 Sex
--- OUTSIDE RECORDS SUMMARY | 2024-02-04 20:00 | XMS_ITS | Continuity of Care Document ---
Author Organization [facility] Address [address] [place] [address]- Care Team Providers Care Medical Laboratory Scientist Name Role Phone Kelly SUMNER, Bhavin Rodas Primary Care Physician [place] [facility] [place] Date(s): 07/17/19 - 08/24/[address] [address]- [facility] Attending Physician: Not on Staff, Attending MD Referring Physician: Chelsea LANTIGUA, Princess Allergies, Adverse Reactions, Alerts Substance Reaction Severity [...] constipation, 07/22/17 10:32:13, Route to Pharmacy Electronically, [id number], [facility]/pharmacy #1972 Start Date: 07/22/17 Stop Date: [...] 2, 3 2009 Active PTSD (Managed by [facility])(Confirmed) Active (Confirmed) Active H/O Suicide ideation(Confirmed) 4 Active 1acid reflux- GI notes in CIS 2CIS documentation 4249602/2011 4CIS documentation Social History Social History Type Response Smoking Status Former smoker; Tobac co user in household: Yes; Number of years: 10; Total pack years: 5; Started at age: 17; Stopped at age: 28; entered on: 09/06/14 Sex Female
--- OUTSIDE RECORDS SUMMARY | 2024-02-04 20:00 | XMS_ITS | Continuity of Care Document ---
Author Organization [facility] Address [address] [place] [address]- Care Team Providers Care Auditor Appraiser Name Role Drilling Fluids Specialist MD, Lokesh Lemus Primary Care Physician [phone] Encounter [facility] Date(s): 12/24/21 - 02/13/[address] [address] Attending Physician: Alexandra Ramesh CNM Admitting Physician: [...] 11/04/21 19:04:00 EDT, Route to Pharmacy Electronically, [facility]/pharmacy #[id number], Partial fill upon patient request if the prescription is for a schedule II opioid drug.,... Start Date: 11/04/21 Status: Ordered Sprintec 0.25 mg-35 mcg oral tablet 1 tablet, By Mouth, Daily, Maintenance, # 84 tablet, 2 Refills, Maintenance, 11/04/21 19:11:00 EDT,[facility]/pharmacy #[id number], Partial fill upon patient request if the prescription is for a schedule II opioid drug., 1 tablet By Mouth Daily,x28 days,Instr:Delmi... Start Date: 11/04/21 Stop Date: 01/27/22 Status: Ordered Problem List Condition Confirmation Course Effective Dates Status H ealth Status Informant Bipolar disease, chronic Confirmed Active Chronic gastritis Confirmed Active GENERALIZED ANXIETY DISORDER Confirmed Active Depression, major Confirmed 10/21/08 Active H/O psychiatric hospitalization x2 1, 2 Confirmed 2009 Active PTSD (Managed by [facility]) Confirmed Active H/O Suicide ideation 3 Confirmed Active 1CIS documentation 3CIS documentation Social History Social History Type Response Smoking Status Former smoker, quit more than 30 days ago entered on: 11/04/21 Sex Patient Care team information Personnel Name: Banker SUMNER, Lokesh Lemus Address: Address: [address] [place] [address]
--- OUTSIDE RECORDS SUMMARY | 2024-02-04 20:00 | XMS_ITS | Continuity of Care Document ---
Author Organization [facility] Address [address] [place] [address]- Care Team Providers Care Comb Tender Name Role Phone Bhavin Mendoza MD Primary Care Physician [place] [facility] [place] - 02/29/[address] [address]- [facility] Allergies, Adverse Reactions, Alerts Substance Reaction Severity [...] constipation, 07/22/17 10:32:13, Route to Pharmacy Electronically, [id number], [facility]/pharmacy #1972 Start Date: 07/22/17 Stop [...] 2, 3 2009 Active PTSD (Managed by [facility])(Confirmed) Active (Confirmed) Active H/O Suicide ideation(Confirmed) 4 Active 1acid reflux- GI notes in CIS 2CIS documentation 40383/2010 4CIS documentation Social History Social History Type Response Smoking Status Former smoker; Tobac co user in household: Yes; Number of years: 10; Total pack years: 5; Started at age: 17; Stopped at age: 28; entered on: 09/06/14 Sex
--- OUTSIDE RECORDS SUMMARY | 2024-02-04 20:00 | XMS_ITS | Continuity of Care Document ---
Author Organization [facility] Address [address] [place] [address]- Care Team Providers Care Barrel Driller Name Role Phone Kelly SUMNER, Bhavin Rodas Primary Care Physician Encounter [facility] [place] Date(s): 07/26/19 - 08/05/[facility] [address] [place] [address]- [facility] Attending Physician: Neo Russell Admitting Physician: AdmNeo [...] constipation, 07/22/17 10:32:13, Route to Pharmacy Electronically, [id number], [facility]/pharmacy #1972 Start Date: 07/22/17 Stop Date: [...] 2, 3 2009 Active PTSD (Managed by [facility])(Confirmed) Active (Confirmed) Active H/O Suicide ideation(Confirmed) 4 Active 1acid reflux- GI notes in CIS 2CIS documentation 92532/2010 4CIS documentation Social History Social History Type Response Smoking Status Former smoker; Tobac co user in household: Yes; Number of years: 10; Total pack years: 5; Started at age: 17; Stopped at age: 28; entered on: 09/06/14 Sex Female
--- OUTSIDE RECORDS SUMMARY | 2024-02-04 20:00 | XMS_ITS | Continuity of Care Document ---
Author Organization [facility] Address [address] [place] [address]- Care Team Providers Care Weaver Hand Name Role Candy Maker HelperLokesh Denise MD Primary Care Physician Encounter [facility] [place] Date(s): 07/05/23 - 07/05/[address] [address]- Discharge Disposition: A-Error Chart/Home (ED Only) Attending Physician: Not on Staff, Attending MD Admitting Physician: Not on Staff, Admitting MD Referring Physician: Not on Staff, Referring [...] Active PTSD (Managed by [facility]) Confirmed Active H/O Suicide ideation 3 Confirmed Active 1CIS documentation 3CIS documentation Social History Social History Type Response Smoking Status Former smoker, quit more than 30 days ago entered on: 11/04/21 Sex Patient Care team information Care Team Personnel Name: Lokesh Denise MD Position: S Physician - Primary Care Member Role: PCP Address: Address: [address] [place], [place] [address] [place] [address]- Name: Bhavna VEGA, Jose Quintana Position: S RN Member Role: Primary Care Nurse Care Team Related Persons Name: SHAYY FARMERJARVIS Address: [address] [place] [address] Name: DANIEL FARMER Address: [address] [place] [address] Name: KYUNG SHERIFF Address: [place] [address] Name: JON MIGUEL Address: [address] [place] [address] Name: GUSTAVO GAMEZ Address: [id number] Address: [address] [place] [address]
--- OUTSIDE RECORDS SUMMARY | 2024-02-04 20:00 | XMS_ITS | Continuity of Care Document ---
Author Organization [facility] Address [address] [place] [address]- Care Team Providers Care Ssn/Ssbn Assistant Navigator Name Role Phone Kelly SUMNER, Bhavin Rodas Primary Care Physician Encounter [facility] Date(s): 12/10/19 - 01/09/[address] [address]- [facility] Attending Physician: Not on Staff, Attending [...] constipation, 07/22/17 10:32:13, Route to Pharmacy Electronically, [id number], [facility]/pharmacy #1971 Start Date: 07/22/17 Stop Date: 01/18/18 Status: Ordered Diflucan 150 mg oral tablet = 150 mg, By Mouth, Once, # 1 tablet, 0 Refills, Soft Stop, 01/02/20 11:56:00 EDT, [facility], 158, cm, 12/17/19 15:52:00 EDT, Height, 73.2, kg, 12/27/19 21:44:00 EDT, Dry Weight Start Date: 01/02/20 Status: Ordered famotidine 10 mg oral tablet [...] Dry Weight Start Date: 01/04/20 Status: Ordered MetroGel 1% topical gel 1 application, Topically, Daily, # 60 Gm, 0 Refills, Maintenance, 09/24/19 16:41:00 EDT, Gel, [facility], 1 application Topically Daily,x7 days, 158, cm, [...]
--- OUTSIDE RECORDS SUMMARY | 2024-02-04 20:00 | XMS_ITS | Continuity of Care Document ---
Author Organization [facility] Address [address] [place] [address]- Care Team Providers Care Program Lead Name Role Tie PresserLokesh Denise MD Primary Care Physician [phone] Encounter [facility] Date(s): 02/01/23 - 03/03/[address] [address]- [place] Allergies, Adverse Reactions, Alerts Substance Reaction Severity [...] 2 Confirmed 2009 Active PTSD (Managed by [facility]) Confirmed Active H/O Suicide ideation 3 Confirmed Active 1CIS documentation 3CIS documentation Social History Social History Type Response Smoking Status Former smoker, quit more than 30 days ago entered on: 11/04/21 Sex Patient Care team information Care Team Personnel Name: Lokesh Denise MD Position: [facility] Physician - Primary Care Member Role: PCP Address: Address: [address] [place] [address]- Name: Bhavna VEGA, Jose Quintana Position: [facility] RN Member Role: Primary Care Nurse Care Team Related Persons Name: KRISTAL FARMER Address: [address] [place] [address] Name: DANIEL FARMER Address: [address] [place] [address] Name: KYUNG SHERIFF Address: [place] [address] Name: JON MIGUEL Address: home [address] [place] [address] Name: GUSTAVO GAMEZ Address: [address] Address: [address] [place] [address] [place]
--- OUTSIDE RECORDS SUMMARY | 2024-02-04 20:00 | XMS_ITS | Continuity of Care Document ---
Author Organization [facility] Address [address] [place] [address]- Care Team Providers Care Patient Service Specialist Name Role Phone Not on Staff, PCP Primary Care Physician Unavail able Encounter [facility] Date(s): 09/12/22 - 09/12/[address] [address]- Discharge Disposition: A-D/C Home Attending Physician: Bernardo Goodwin MD Admitting Physician: Bernardo Goodwin MD Referring Physician: Not on Staff, Referring [...] 11/04/21 19:04:00 EDT, Route to Pharmacy Electronically, [facility]/pharmacy #[id number], Partial fill upon patient request if the prescription is for a schedule II opioid drug.,... Start Date: 11/04/21 Status: Ordered Sprintec 0.25 mg-35 mcg oral tablet 1 tablet, By Mouth, Daily, Maintenance, # 84 tablet, 2 Refills, Maintenance, 11/04/21 19:11:00 EDT,[facility]/pharmacy #[id number], Partial fill upon patient request if the prescription is for a schedule II opioid drug., 1 tablet By Mouth Daily,x28 days,Instr:Enio. Start Date: 11/04/21 Stop Date: 01/27/22 Status: Ordered Problem List Condition Confirmation Course Effective Dates Status H ealth Status Informant Bipolar disease, chronic Confirmed Active Chronic gastritis Confirmed Active GENERALIZED ANXIETY DISORDER Confirmed Active Depression, major Confirmed 10/21/08 Active H/O psychiatric hospitalization x2 1, 2 Confirmed 2009 Active PTSD (Managed by [facility]) Confirmed Active H/O Suicide ideation 3 Confirmed Active 1CIS documentation 3CIS documentation Vital Signs Most recent to oldest [Reference Range]: 1 2 Height 158 cm (09/12/22 7:31 PM) 158 cm (09/12/22 4:48 PM) Weight 74 kg (09/12/22 7:31 PM) 74 kg (09/12/22 4:48 PM) Oxygen Saturation [94-100 %] 99 % (09/12/22 7:31 PM) 100 % (09/12/22 4:48 PM) Pulse Rate [55-90 bpm] 69 bpm (09/12/22 7:31 PM) 63 bpm (09/12/22 4:48 PM) Body Mass Index [18.5-24.99 kg/m2] 29.64 kg/m2 *H* (09/12/22 7:31 PM) Blood Pressure [90-138/55-84 mm Hg] 108/ 65mm Hg (09/12/22 7:31 PM) 136/89mm Hg (09/12/22 4:48 PM) Respiratory Rate [16-30 br/min] 17 br/mi n (09/12/22 4:48 PM) Temperature [96.8-100.4 DegF] 97.2 DegF (09/12/22 4:48 PM) Mode of Delivery (Oxygen) Room air (09/12/22 7:31 PM) Room air (09/12/22 4:48 PM) Blood pressure sites Arm, left (09/12/22 7:31 PM) Temperature Route Temporal (09/12/22 4:48 PM) Dry Weight 74 kg (09/12/22 7:31 PM) 74 kg (09/12/22 4:48 PM) Social History Social History Type Response Smoking Status Former smoker, quit more than 30 days ago entered on: 11/04/21 Sex Note * Cornell Dang: PERFORM Event Display: Patient Education Leaflets Authored Date: [id number] Low-Fat Diet ?? [id number] Low-Fat Diet A low-fat diet can help you lose weight. It also can help lower cholesterol and prevent symptoms ofgallbladder disease. In addition, choosing healthier unsaturated fats over less saturated healthy fats can help improve heart health. The average Micronesian diet contains up to 50% fat. This means thathalf of all calories come from fat (about 80 grams to 100 grams of fat per day). Choosing normal portions of foods from the list below can help lower your fat intake. Experts recommend that only 20% to 35% of your daily calories come from fat. The remaining 65% to 80% of calories will come from protein and carbohydrates. ?? Breads OK: Whole-wheat or rye bread, bharti or soda crackers, radha toast, plain rolls, whole-wheat bagels, Tristanian muffins Don't have: Rolls and breads containing whole milk; waffles, pancakes, biscuits, corn bread; cheesecrackers, other flavored crackers, pastries, doughnuts ?? Cereals OK: Oatmeal, whole-wheat, bran, multigrain, rice Don't have:Granola or other cereals that have oil, coconut, or more than 2 grams of fat per serving ?? Cheese and eggs OK: Cheeses labeled low-fat; 3 whole eggs per week; egg whites and egg substitutes as desired Don't have: All other cheeses ?? Desserts OK: Gelatin, slushy, betsy food cake, meringues, nonfat yogurt, and puddings, or sherbet made with nonfat milk Don't have: Any other store-bought desserts, or desserts that have fat, whole milk, cream, chocolate, and coconut. Try to limit sweets and desserts. They may also contain high amounts of added sugars. ?? Drinks OK: Nonfat milk, coffee, tea, water Don't have:Whole and reduced-fat milk, evaporated and condensed milk, hot chocolate mixes, milk shakes, malts, eggnog ?? Fats OK: You may have up to 3 teaspoons of fat daily. This can be butter, margarine, mayonnaise, or healthy oils (canola or olive) Don't have: Cream, nondairy creams, cream cheese, gravies, and cream sauces ?? Fruits OK: All fruits made without fat Don't have: Coconut, olives ?? Meats, poultry, fish OK: Limit meat to 6 ounces daily (broiled, roasted, baked, grilled, or boiled). Buy lean cuts, and trim off the fat. Try beef, fish, yañez, pork, and canned fish packed in water; also, chicken and turkey with the skin removed. Don't have: Fried meats, fish, or poultry; fried eggs, and fish canned in oils; fatty meats, such as denise, sausage, corned beef, hot dogs, and lunch meats; meats with gravies and sauces ?? Potatoes, beans, pasta OK: Dried beans, split peas, lentils, potatoes, rice, pasta made without added fat Don't have: Azeri fries, potato chips, potatoes prepared with butter, refried beans ?? Soups OK: Clear broth soups without fat and with allowed vegetables Don't have: Cream-based soups ?? Vegetables OK: Fresh, frozen, canned or dried vegetables, all made without added fat Don't have: Fried vegetables and those prepared with butter, cream, sauces ?? Other foods OK: Salsa, spices and herbs, mustard, ketchup, lemon, and vinegar. Though some foods like sugar, jelly, hard candy, marshmallows, honey, syrup, and salt contain no fat, it's still a good idea to watch portion sizes. The Dietary Guidelines for Americans recommend that less than 10% of daily caloriescome from added sugars. Don't have: Chocolate, nuts, coconut, and cream candies; sunflower, sesame, and other seeds; fried foods; cream sauces and gravies; pizza ?? Last Reviewed Date: 2021 ?? The [employer]. All rights reserved. This information is not intended as a substitute for professional medical care. Always follow your healthcare professional's instructions. ?? * Cornell Dang: PERFORM Event Display: Patient Education Leaflets Authored Date: [id number] Gallstones??with Biliary Colic ?? [id number] Gallstones??with Biliary Colic Your abdominal pain??is from irritation and spasm of the gallbladder.??This is called biliary colic.??The gallbladder is a small sac under the liver that stores and releases a bile. Bile is a fluid made in the liver that helps your body digest fat.??Crystals may form stones inside the gallbladder (gallstones). Gallstones can cause the gallbladder to spasm. If they block the duct out of the gallbladder, they??can cause pain and even an infection.?? A number of things increase the risk of having gallstones: ??? Being female ??? Being severely overweight (obese) ??? Older age ??? Losing or gaining weight quickly ??? Eating a high-calorie diet ??? Being ??? Taking hormone therapy ??? Having diabetes Home care ??? Rest in bed. ??? Drink only clear liquids until you feel better. ??? You may have been prescribed medicine for pain or nausea. Take these as directed. ??? Fat in your diet makes the gallbladder contract and may cause increased pain. Don't eat foods that are high in fat such as full-fat dairy, fried foods, and fatty meats for at least 2 days. ??? If you are overweight, talk with yourhealthcare provider about losing weight. ?? Follow-up care Follow up with your healthcare provider or as advised. You may have another bout of pain from your gallstones??at some point.??Removal of the gallbladder is an option to prevent this. Talk with your healthcare provider about your treatment options. ?? When to seek medical advice Call your healthcare provider if any of the following occur: ??? Pain gets worse or lasts for longer than 6 hours ??? Pain moves to the right lower belly ??? Repeated vomiting ??? Swollen belly ??? Fever of 100.4??F (38??C) or higher, or as directed by your healthcare provider ??? Very dark urine, light colored stools, or yellow color of the skin or eyes ??? Chest, arm, back, neck, or jaw pain ??? Symptoms get worse or you have new symptoms ?? Last Reviewed Date: 2021 ?? 3221-2596 The [employer]. All rights reserved. This information is not intended as a substitute for professional medical care. Always follow your healthcare professional's instructions. ?? Patient Care team information Care Team Personnel Name: Bhavna RN, Jose Quintana Position: [facility] RN Member Role: Primary Care Nurse Name: Not on Staff, PCP Position: [facility] Physician (General Medicine) Member Role: PCP Name: Laura Lester Position: [facility] ED OA Member Role: Software Engineer Web Services Name: Cornell Dang Position: [facility] Associate Professional Member Role: ED Physician Analyst Competitive Intelligence Address: Address: [address] [place] [address] Name: Jacqueline VEGA, Noam Baldwin Position: [facility] ED RN W/OE and Tasks Member Role: Patient Care Provider Name: Bernardo Goodwin MD Position: [facility] ED Medicine MD Member Role: Admitting Physician Address: Address: [address] [place] [address] Care Team Related Persons Name: KRISTAL FARMER Address: home [address] [place] [address] Name: DANIEL FARMER Address: home [address] [place] [address] Name: KYUNG SHERIFF Address: [place] [address] Name: JON MIGUEL Address: home [address] [place] [address] Name: GUSTAVO GAMEZ Address: [address] Address: home [address] [place] [address]
--- OUTSIDE RECORDS SUMMARY | 2024-02-04 20:01 | XMS_ITS | Continuity of Care Document ---
Author Organization [facility] Address [address] [place] [address]- Care Team Providers Care Plaster Helper Name Role Rotary Dump OperatorLokesh Denise MD Primary Care Physician Encounter [facility] Date(s): 11/30/22 - 12/30/[address] [address] Allergies, Adverse Reactions, Alerts Substance Reaction Severity [...] 2 Confirmed 2009 Active PTSD (Managed by [facility]) Confirmed Active H/O Suicide ideation 3 Confirmed Active 1CIS documentation 3CIS documentation Social History Social History Type Response Smoking Status Former smoker, quit more than 30 days ago entered on: 11/04/21 Sex Patient Care team information Care Team Personnel Name: Lokesh Denise MD Position: [facility] Physician - Primary Care Member Role: PCP Address: Address: [address] [place] [address] Name: Bhavna VEGA, Jose Quintana Position: S RN Member Role: Primary Care Nurse Care Team Related Persons Name: KRISTAL FARMER Address: home [address] [place] [address] Name: DANIEL FARMER Address: home [address] [place] [address] Name: KYUNG SHERIFF Address: [place] [address] Name: JON MIGUEL Address: home [address] [place] [address] Name: GUSTAVO GAMEZ Address: [address] Address: home [address] [place] [address] [place]
--- OUTSIDE RECORDS SUMMARY | 2024-02-04 20:01 | XMS_ITS | Continuity of Care Document ---
Author Organization [facility] Address [address] [place] [address]- Care Team Providers Care Corn Lab Technician Name Role Phone Bhavin Mendoza MD Primary Care Physician Encounter [facility] Date(s): 01/17/20 - 02/16/[address] [address]- [facility] Allergies, Adverse Reactions, Alerts [...] constipation, 07/22/17 10:32:13, Route to Pharmacy Electronically, [id number], [facility]/pharmacy #1972 Start Date: 07/22/17 Stop Date: 01/18/18 Status: Ordered famotidine 10 mg oral tablet 1 tablet = 10 mg, By Mouth, 2 times a day, # 28 tablet, 0 Refills, Maintenance, 12/17/19 16:14:00 EDT, Tablet, [facility]/pharmacy #1972, 158, cm, 12/17/19 15:52:00 EDT, Height, 62, kg, 07/26/19 14:27:00 EDT, Dry Weight Start Date: 12/17/19 Status: Ordered ferrous sulfate 325 mg oral tablet 1 tablet = 325 mg, By Mouth, 3 times a day, # 120 tablet, 2 Refills, Maintenance, 01/04/20 8:50:00 EDT, [facility]/pharmacy #1972, 158, cm, 01/03/20 13:07:00 EDT, Height, 73.2, kg, 12/27/19 21:44:00 EDT, Dry Weight Start Date: 01/04/20 Status: Ordered ibuprofen 600 mg oral tablet 600 mg, 1, tablet, By Mouth, Every 6 hours, PRN, # 30 tablet, Refills 1, Tot. Refills 1, Acute 02/23/20 15:47:00 EDT, Pain , Moderate, 02/03/20 15:47:00 EDT, Route to Pharmacy Electronically, [facility]/pharmacy #[id number], 158, cm, 02/03/20 15:36:00 EDT, Height,... [...] 02/03/20 15:47:00 EDT, Route to Pharmacy Electronically, [facility]/pharmacy #[id number], Partial fill upon patient request, 158... [...] 02/23/20 15:47:00 EDT, 02/03/20 15:47:00 EDT, Tablet, [facility]/pharmacy #[id number], 158, cm, 02/03/20 15:36:00 EDT, Height, [...] 2, 3 2009 Active PTSD (Managed by [facility])(Confirmed) Active (Confirmed) Active H/O Suicide ideation(Confirmed) 4 Active 1acid reflux- GI notes in CIS 2CIS documentation 22709/2010 4CIS documentation Social History Social History Type Response Smoking Status Former smoker; Tobac co user in household: Yes; Number of years: 10; Total pack years: 5; Started at age: 17; Stopped at age: 28; entered on: 09/06/14 Sex
--- OUTSIDE RECORDS SUMMARY | 2024-02-04 20:01 | XMS_ITS | Continuity of Care Document ---
Author Organization [facility] Address [address] [place] [address]- Care Team Providers Care Plant Production Manager Name Role Phone Kelly SUMNER, Bhavin Rodas Primary Care Physician Encounter [facility] Date(s): 11/20/19 - 12/26/[address] [address]- [facility] Attending Physician: Not [...] constipation, 07/22/17 10:32:13, Route to Pharmacy Electronically, [id number], [facility] Start Date: 07/22/17 Stop Date: 01/18/18 Status: Ordered famotidine 10 mg oral tablet 1 tablet = 10 mg, By Mouth, 2 times a day, # 28 tablet, 0 Refills, Maintenance, 12/17/19 16:14:00 EDT, Tablet, [facility], 158, cm, 12/17/19 15:52:00 EDT, Height, 62, kg, 07/26/19 14:27:00 EDT, Dry Weight Start Date: 12/17/19 Status: Ordered MetroGel 1% topical gel 1 [...] 3 Refills, Maintenance, 09/24/19 15:43:00 EDT, Tablet, [facility]/pharmacy #1972, 1 tablet By Mouth Daily, 158, [...]
--- OUTSIDE RECORDS SUMMARY | 2024-02-04 20:01 | XMS_ITS | Continuity of Care Document ---
Author Organization [facility] Address [address] [place] [address]- Care Team Providers Care Machine Feeder Raw Stock Name Role Phone Kelly SUMNER, Bhavin Rodas Primary Care Physician Encounter [facility] Date(s): 07/17/19 - 07/17/[address] [address]- [facility] Discharge Disposition: A-D/C Home Attending Physician: Houston Marti MD Admitting Physician: Houston Marti MD Referring Physician: Houston Marti MD Allergies, Adverse Reactions, Alerts Substance Reaction [...] constipation, 07/22/17 10:32:13, Route to Pharmacy Electronically, [id number], [facility]/pharmacy #1972 Start Date: 07/22/17 Stop Date: 01/18/18 Status: Ordered Keflex monohydrate 500 mg oral capsule 1 capsule = 500 mg, By Mouth, 4 times a day, for 7 days, # 28 capsule, 0 Refills, Acute 07/24/19 16:26:00 EDT, 07/17/19 16:26:00 EST, Capsule, [facility], 158, cm, 07/17/19 13:38:00 EST, Height, 62.1, kg, 07/17/19 13:38:00 EST, Dry Weight Start Date: 07/17/19 Stop Date: 07/24/19 Status: Ordered omeprazole 20 mg oral enteric [...] disease, chronic(Confirmed) Active GENERALIZED ANXIETY DISORDER(Confirmed) Active History of varicella as a child(Confirmed) Active H/O gastritis(Confirmed) 1 Active Depression, major(Confirmed) 10/21/08 Active Normal vaginal Papanicolaou smear(Confirmed) 2015 Active H/O psychiatric hospitalizat ion x2(Confirmed) 2, 3 2009 Active PTSD (Managed by [facility])(Confirmed) Active H/O Suicide ideation(Confirmed) 4 Active 1acid reflux- GI notes in CIS 2CIS documentation 4CIS documentation Vital Signs Most recent to oldest [Reference Range]: 1 Weight 61.7 kg (07/17/19 2:21 PM) Oxygen Saturation [94-100 %] 100 % (07/17/19 2:21 PM) Pulse Rate [55-90 bpm] 84 bpm (07/17/19 2:21 PM) Blood Pressure [90-138/55-84 mm Hg] 106/ 66mm Hg (07/17/19 2:21 PM) Respiratory Rate [16-30 br/min] 18 br/mi n (07/17/19 2:21 PM) Temperature [96.8-100.4 DegF] 98.4 DegF (07/17/19 2:21 PM) Mode of Delivery (Oxygen) Room air (07/17/19 2:21 PM) Blood pressure sites Arm, right 1 (07/17/19 2:21 PM) Temperature Route Oral (07/17/19 2:21 PM) Weight Obtained Via Standing scale (07/17/19 2:21 PM) 1Result Comment: right upper arm measured 27 cm Social History Social History Type Response Smoking Status Former smoker; Tobac co user in household: Yes; Number of years: 10; Total pack years: 5; Started at age: 17; Stopped at age: 28; entered on: 09/06/14 Sex Female
--- OUTSIDE RECORDS SUMMARY | 2024-02-04 20:01 | XMS_ITS | Continuity of Care Document ---
Author Organization [facility] Address [address] [place] [address]- Care Team Providers Care Rental Sales Agent Name Role Phone Prior Palmer COLVIN Primary Care Physician [phone] Encounter [facility] Date(s): 05/30/20 - 06/29/[address] [address] Allergies, Adverse Reactions, Alerts Substance [...] constipation, 07/22/17 10:32:13, Route to Pharmacy Electronically, [id number], [facility] Start Date: 07/22/17 Stop Date: [...] 2, 3 2009 Active PTSD (Managed by [facility])(Confirmed) Active (Confirmed) Active H/O Suicide ideation(Confirmed) 4 Active 1acid reflux- GI notes in CIS 2CIS documentation 78[address]/2010 4CIS documentation Social History Social History Type Response Smoking Status Former smoker; Tobac co user in household: Yes; Number of years: 10; Total pack years: 5; Started at age: 17; Stopped at age: 28; entered on: 09/06/14 Sex
--- OUTSIDE RECORDS SUMMARY | 2024-02-04 20:01 | XMS_ITS | Continuity of Care Document ---
Author Organization [facility] Address [address] [place] [address]- Care Team Providers Care Wordpress Developer Name Role Phone Bhavin Mendoza MD Primary Care Physician [place] [facility] [place](s): 02/14/20 - 03/15/[address] [address]- [facility] Allergies, Adverse Reactions, Alerts [...] constipation, 07/22/17 10:32:13, Route to Pharmacy Electronically, [id number], [facility]/pharmacy #1972 Start Date: 07/22/17 Stop Date: [...] reflux- GI notes in CIS 2CIS documentation 25329/2010 4CIS documentation Social History Social History Type Response Smoking Status Former smoker; Tobac co user in household: Yes; Number of years: 10; Total pack years: 5; Started at age: 17; Stopped at age: 28; entered on: 09/06/14 Sex
--- OUTSIDE RECORDS SUMMARY | 2024-02-04 20:01 | XMS_ITS | Continuity of Care Document ---
Author Organization [facility] Address [address] [place] [address]- Care Team Providers Care Food Service Manager Name Role Phone Not on Staff, PCP Primary Care Physician Unavail able Encounter [facility] Date(s): 09/11/22 - 09/11/[address] [address]- Discharge Disposition: A-D/C Home Attending Physician: Stephen Caro MD Admitting Physician: Stephen Caro MD Referring Physician: Not on Staff, Referring [...] 11/04/21 19:04:00 EDT, Route to Pharmacy Electronically, [facility]/pharmacy #[id number], Partial fill upon patient request if the prescription is for a schedule II opioid drug.,... Start Date: 11/04/21 Status: Ordered Sprintec 0.25 mg-35 mcg oral tablet 1 tablet, By Mouth, Daily, Maintenance, # 84 tablet, 2 Refills, Maintenance, 11/04/21 19:11:00 EDT,[facility]/pharmacy #[id number], Partial fill upon patient request if the [...] 2 Confirmed 2009 Active PTSD (Managed by [facility]) Confirmed Active H/O Suicide ideation 3 Confirmed Active 1CIS documentation 3CIS documentation Vital Signs Most recent to oldest [Reference Range]: 1 2 3 Height 158 cm (09/11/22 6:40 PM) 158 cm (09/11/22 3:38 PM) 158 cm (09/11/22 3:36 PM) Weight 74.5 kg (09/11/22 3:38 PM) Oxygen Saturation [94-100 %] 99 % (09/11/22 6:40 PM) 98 % (09/11/22 3:36 PM) Pulse Rate [55-90 bpm] 71 bpm (09/11/22 6:40 PM) 85 bpm (09/11/22 3:38 PM) 106 bpm *H* (09/11/22 3:36 PM) Blood Pressure [90-138/55-84 mm Hg] 106/63mm Hg (09/11/22 6:40 PM) 114/65mm Hg (09/11/22 3:38 PM) Respiratory Rate [16-30 br/min] 18 br/min (09/11/22 6:40 PM) 16 br/min (09/11/22 3:36 PM) Temperature [96.8-100.4 DegF] 98.0 DegF (09/11/22 6:40 PM) 97.4 DegF (09/11/22 3:38 PM) Mode of Delivery (Oxygen) Room air (09/11/22 6:40 PM) Room air (09/11/22 3:36 PM) Blood pressure sites Arm, left (09/11/22 6:40 PM) Temperature Route Oral (09/11/22 6:40 PM) Temporal (09/11/22 3:38 PM) Dry Weight 74.5 kg (09/11/22 3:38 PM) Social History Social History Type Response Smoking Status Former smoker, quit more than 30 days ago entered on: 11/04/21 Sex Note * Stephen Caro MD: PERFORM Event Display: Patient Education Leaflets Authored Date: [id number] Hepatitis, Viral (Type Pending) ?? [id number] Pruebas de hepatitis viral,??resultados pendientes La hepatitis??es felix inflamaci??n del h??gado. La causa m??s frecuente es felix infecci??n viral. Haytres tipos de virus m??s comunes: hepatitis??A,??B y??C. Felix forma poco habitual es la hepatitis??D. Esta ??ltima se puede contraer cuando se tiene hepatitis??B. Le nita??n pruebas para averiguar qu??tipo tiene. Hasta obtener los resultados, debe robles precauciones para todos los tipos de hepatitis. Estas se describen a continuaci??n. Causas Los virus son las causas m??s frecuentes de la hepatitis. Otras causas pueden ser el abuso de drogas y alcohol, toxinas qu??micas, alimentos contaminados por heces y trastornos autoinmunitarios. La hepatitis tambi??n puede producirse por un h??gado graso ocasionado por obesidad, diabetes, colesterol alto y otras afecciones. Si tiene hepatitis viral, esto podr??a empeorar blair afecci??n. Cuando la causa es un virus, se la llama hepatitis viral. La hepatitis viral com??nmente se debe a los virus de la hepatitis A, B y C. Otras infecciones virales tambi??n pueden producir hepatitis. Por ejemplo, los virus que causan la mononucleosis y la varicela. Todos los virus hep??ticos (del h??gado) tienen algo en com??n. Felix vez que la persona se contagia,infectan el h??gado y producen inflamaci??n (hepatitis). Cada virus se propaga de manera diferente.Patricia todos pueden afectar la sergio por mucho tiempo. Algunas posibles complicaciones son la cirrosis, el c??ncer de h??gado y la insuficiencia hep??arun. Hepatitis A Esta enfermedad por lo general se contrae al tragar alimentos o agua contaminados con el virus de la hepatitis??A. Tambi??n se puede contraer por el contacto estrecho en el hogar con otra persona quetiene la enfermedad. Los s??ntomas aparecen a partir de las 2 a 6??semanas despu??s de la exposici??n. Hay felix vacuna disponible para prevenir la hepatitis??A. Fior tipo no produce felix enfermedad hep??arun cr??neto. Hepatitis B Esta enfermedad se transmite por contacto con la colton de felix persona que tiene el virus de la hepatitis??B. Por ejemplo, al compartir agujas, jeringas o instrumentos para administrarse drogas. Tambi??n puede transmitirse por contacto sexual. Con poca frecuencia se transmite al compartir afeitadoras o cepillos de dientes. Los s??ntomas aparecen unos 2 a 6??meses despu??s de la exposici??n. Hay felix vacuna disponible para prevenir la hepatitis??B. Fior tipo puede llegar a convertirse en felix enfermedad hep??arun cr??neto. Hepatitis C Esta enfermedad suele transmitirse por contacto con la colton de felix persona que tiene hepatitis??C. Por ejemplo, al compartir agujas o jeringas. Otras causas menos comunes de la hepatitis??C son el contacto sexual, compartir afeitadoras o cepillos de dientes con felix persona infectada por el virus,un tatuaje hecho con felix aguja contaminada o compartir instrumentos para administrarse drogas. Vivir en la misma casa con felix persona que tenga el virus no produce hepatitis??C, a menos que los l??quidos corporales de la otra persona entren en contacto con los suyos. La hepatitis??C puede llegar a convertirse en felix enfermedad hep??arun cr??neto. ?? S??ntomas Estos pueden ser los s??ntomas de la hepatitis aguda de tipo A, B o C: ??? Fiebre ??? N??useas o v??bin ??? Dolor de vientre (abdominal) ??? P??rdida del apetito ??? Agotamiento f??sico o debilidad cr??nicos ??? Orina de color amarillo oscuro ??? Heces de color tashia (jason o de color arcilla) ??? Dolor en las articulaciones ??? Color amarillento en la piel o en los ojos (ictericia) Por lo general, la hepatitis??A es felix enfermedad leve. Yas s??ntomas aragon entre 2??y 6??semanas. La hepatitis??B es felix enfermedad m??s grave. Los s??ntomas de la hepatitis??B suelen durar entre 1 y 3??meses. La hepatitis??C no causa s??ntomas en la mayor??a de las personas que la tienen. Cuando se presentan s??ntomas, suelen ser muy leves. Algunos s??ntomas comunes de la hepatitis??C son fatiga, n??useas y p??rdida del apetito. Si se infect?? por hepatitis??B o??C hace a??os, es posible que no presente yas??n s??ntoma patricia que siga teniendo el virus. ?? Cuidados en el hogar ??? Felix dieta con bajo consumo de grasas saturadas y abundante en frutas y verduras es lo mejor para usted y para el h??gado. Si tiene n??useas, es mejor comer poco y con frecuencia. ??? Si tiene s??ntomas de hepatitis, es posible que se canse con facilidad. Descanse mucho. No se esfuerce demasiado. ??? El paracetamol y los medicamentos antinflamatorios, marie el ibuprofeno y el naproxeno, pueden ser t??xicos para el h??gado en dosis altas de uso prolongado, o si ya hay da??o hep??yasmin. o Si tiene hepatitis, no use estos medicamentos hasta consultarlo con el proveedor de atenci??n m??dica. o Si no tiene da??o hep??yasmin debido a la hepatitis cr??neto o es leve, quiz??s pueda robles paracetamol en dosis bajas (2??gramos cada 24??horas). Consulte con el proveedor sobre medicamentos antinflamatorios. Nunca tome paracetamol con alcohol. Aumenta el riesgo de tener da??o hep??yasmin. ??? El alcohol hace que el h??gado se esfuerce. No ivanna alcohol hasta que hayan desaparecidotodos los s??ntomas y los resultados de las pruebas en el h??gado jorge a normales. ??? Si padece afecciones que provocan un h??gado graso, marie obesidad, colesterol/triglic??ridos altos, diabetes y presi??n arterial ngoc, el tratamiento de estas afecciones es importante para la sergio de blair h??gado. ?? C??mo prevenir el contagio de la hepatitis ??? L??vese las frieda a menudo, especialmente despu??s de ir al ba??o. ??? Si blair beb?? tiene hepatitis, use pa??ales descartables. L??vese las frieda despu??s de cambiar el pa??al. ??? Los trabajadores de servicios alimentarios no deben trabajar hasta que los autoricen yas proveedores de atenci??n m??dica. ??? Avise a yas parejas de blair enfermedad. No tenga relaciones sin cond??n hasta que se haya eliminado el virus de blair organismo. Puede reducir el riesgo de contagio. Patricia no es felix garant??a. ??? Nunca comparta agujas, jeringas ni elementos para tatuajes. ??? No done colton. ??? No comparta afeitadoras ni cepillos de dientes. ??? Si necesita atenci??n m??dica u odontol??gica, avise a los proveedores de atenci??n m??dica que tiene hepatitis. ??? Avise a blair proveedor de atenci??n m??dica si est?? embarazada o tiene intenciones de quedar embarazada. La hepatitis puede transmitirse al feto. Existen maneras de reducir el riesgo de contagio al beb??. Es com??n que se ronald pruebas de hepatitis??B a las embarazadas. ? Quienes vivan con usted deben contactar a yas proveedores de atenci??n m??dica o al departamento local de sergio p??blica cuanto antes. As?? podr??n hacerse las pruebas y recibir la vacuna. Quienes hayan tenido contacto con usted de alguna de las maneras mencionadas deben acudir a hacerse pruebas y recibir tratamiento. La vacuna se puede administrar hasta 2??semanas despu??s de que la persona haya estado expuesta. Solo hay vacunas disponibles contra la hepatitis A y B. No existe todav??a ninguna vacuna contra la hepatitis??C, patricia es posible tratarla). ?? Atenci??n de seguimiento Asista a las citas de seguimiento con blair proveedor de atenci??n m??dica seg??n le hayan recomendadopara que le den los resultados de la prueba de hepatitis. Si le realizaron otras pruebas, marie felix tomograf??a computarizada, felix resonancia magn??arun o unaecograf??a, el proveedor las revisar??. Comun??quese con blair proveedor para obtener los resultados. ?? Cu??ndo llamar al?? 911 Llame al?? 911 si tiene algo de lo siguiente: ??? Dificultad para respirar o tragar, sibilancias ??? Confusi??n ??? Somnolencia extrema o problemas para despertarse ??? Desmayo o p??rdida del conocimiento ??? Frecuencia card??nehemiah acelerada ??? V??mitos con colton o sangrado rectal abundante ?? Cu??ndo buscar atenci??n m??dica Llame al proveedor de atenci??n m??dica de inmediato ante cualquiera de las siguientes situaciones:??? V??mitos frecuentes ??? P??rdida de peso por falta de apetito ??? Aumento del dolor o de la hinchaz??n abdominal ??? Mayor somnolencia o confusi??n ??? Debilidad o mareos ??? Color amarillento enla piel o los ojos que es nuevo o aumenta ??? Sangrado de la nariz o de las enc??as; o se le hacen hematomas (moretones) con facilidad ?? Last Reviewed Date: 2022 ?? [id number] [employer]. Todos los derechos reservados. Esta informaci??n no pretende sustituir la atenci??n m??dica profesional. S??lo blair m??dico puede diagnosticar y tratar un problema de sergio. ?? * Stephen Caro MD: PERFORM Event Display: Patient Education Leaflets Authored Date: [id number] Viral Hepatitis,??Test Results Pending ?? [id number] Viral Hepatitis,??Test Results Pending Hepatitis is an inflammation of the liver. It is most often caused by a viral infection. There are three common virus types: hepatitis A, B, and C. An uncommon form is hepatitis D. You can get D whenyou have hepatitis B. You are being tested to figure out which type you have. Until you know which type it is, you should practice precautions for all types of hepatitis. These are described below. Causes The most common causes of hepatitis are viruses. Alcohol and drug abuse, chemical toxins, food contaminated with feces, and autoimmune disorders can also cause hepatitis. Hepatitis can also happen from a fatty liver related to obesity, diabetes, high cholesterol and other conditions. This can make your condition worse if you have viral hepatitis. When a virus causes hepatitis, it is called viral hepatitis. The hepatitis viruses A, B, and C commonly cause viral hepatitis. Other viral infections can also cause hepatitis. Examples are the viruses that cause mononucleosis and chickenpox. All the hepatic (liver) viruses have one thing in common. Once you have them they infect the liver and then cause inflammation (hepatitis). The viruses are spread in different ways. But all can affect your health over a long time. Possible complications include cirrhosis, liver cancer, and liver failure. Hepatitis??A This disease is usually passed by swallowing food or water contaminated with the hepatitis A virus.It is also passed by close household contact with another person who has this illness. Symptoms begin from 2 to 6 weeks after exposure. There is a vaccine available to prevent hepatitis A. This type does not cause chronic liver disease. Hepatitis??B This disease is passed by contact with the blood of a person who has the hepatitis B virus. This could by sharing needles, syringes, or snorting straws. It can also be passed on through sexual contact. It is rarely passed by sharing razors or toothbrushes. Symptoms begin 2 to 6 months after exposure. There is a vaccine available to prevent hepatitis B. This type may go on to become a chronic liver disease. Hepatitis??C This disease is often passed by contact with the blood of a person who has hepatitis C. This could be by sharing needles or syringes. Less common causes for hepatitis C include sexual contact, sharing razors or toothbrushes with an infected person, getting a tattoo with a dirty needle, or sharing snorting straws. Living in the same house with someone who has the virus does not cause hepatitis C unless you share body fluids. Hepatitis C may go on to become a chronic liver disease. ?? Symptoms These are the symptoms of acute hepatitis A, B, or C: ??? Fever ??? Nausea or vomiting ??? Belly (abdominal) pain ??? Loss of appetite ??? Chronic fatigue or weakness ??? Dark yellow-colored urine ??? Light-colored stool (camacho or luke color) ??? Aching joints ??? Yellow color of the skin or eyes (jaundice) Hepatitis??A??is generally a mild illness. Hepatitis A symptoms last from 2 to 6 weeks. Hepatitis??B is a more severe illness. Hepatitis B symptoms usually last from 1 to 3 months. Hepatitis C does not cause any symptoms in many people who have it. When symptoms do occur, they are usually very mild. Fatigue, nausea, and loss of appetite are common symptoms of hepatitis C. If you were infected with hepatitis B or C years ago, you may not have any symptoms but may still have the virus. ?? Home care ??? A diet low in saturated fats and high in fruits and vegetables is best for you and your liver. Small, frequent meals are best if you have nausea. ??? If you are having symptoms of hepatitis, you may tire easily. Get plenty of rest. Don't exert yourself too much. ??? Acetaminophen and anti-inflammatory medicines such as ibuprofen and naproxen can be toxic to the liver in high doses, with prolonged use, or in the presence of existing liver damage. o If you have hepatitis, don't takethese medicines until you talk with your healthcare provider. o If you have only mild or no liver damage from chronic hepatitis, you may take acetaminophen in low doses (2 grams every 24 hours). Check with your provider about anti-inflammatory medicines. Never take acetaminophen with alcohol. Doingso increases the risk of liver damage. ??? Alcohol stresses the liver. Don't drink alcohol until all symptoms have gone away and liver tests are normal. ??? If you have conditions causing a fatty liver such as obesity, high cholesterol/triglycerides, diabetes, and high blood pressure, treating these conditions is important for your liver's health. ?? Preventing the spread of hepatitis ??? Wash your hands often, especially after you use the bathroom. ??? Parents caring for a baby with hepatitis should use disposable diapers. Wash your hands after changing a diaper. ??? in service educator workers should not work until cleared by their healthcare providers. ??? Inform sex partners of your illness. Do not have sex without a condom until the virus has been eliminated from your system. This may reduce the risk of transmission. But it is not a guarantee. ??? Never share needles, syringes, or tattoo equipment. ??? Don't donate blood. ??? Don't share razors or toothbrushes. ??? If you need medical or dental care, tell the healthcare providers that youhave hepatitis. ??? If you are or plan to become , tell your healthcare provider. Hepatitis can spread to the fetus. There are ways to lower your risk of transmission to the baby. Itis common for women to be tested for hepatitis B. ? People who live with you should contact their healthcare providers or the local public health department as soon as possible. This isso they can be tested and get immunization. People who are exposed to you in any of the ways described above should also seek testing and treatment. A vaccine can be given up to 2 weeks after a person is exposed. (Vaccines are available for hepatitis A and B only. There is no vaccine for hepatitis C. But it can be treated.) ?? Follow-up care Follow up with your healthcare provider, or as advised, to get the results of your hepatitis test. If other tests such as a CT scan, an MRI, or an ultrasound were done, they will be reviewed by yourprovider. Contact your provider for results. ?? Call 911 Call 911 if any of these occur: ??? Trouble breathing or swallowing, wheezing ??? Confusion ??? Extreme drowsiness or trouble waking up ??? Fainting or loss of consciousness ??? Rapid heart rate ??? Vomiting blood or major rectal bleeding ?? When to get medical advice Call your healthcare provider right away if any of these occur: ??? Frequent vomiting ??? Weight loss from poor appetite ??? Increase in abdominal pain or swelling ??? Increasing drowsiness or confusion ??? Weakness or dizziness ??? New or increasing yellow color of skin or eyes ??? Bleeding from the gums or nose, or easy bruising ?? Last Reviewed Date: 2022 ?? [id number] [employer]. All rights reserved. This information is not intended as a substitute for professional medical care. Always follow your healthcare professional's instructions. ?? Patient Care team information Care Team Personnel Name: Jose Huggins RN Position: [facility] RN Member Role: Primary Care Nurse Name: Not on Staff, PCP Position: [facility] Physician (General Medicine) Member Role: PCP Name: Yazan Saba RN Position: [facility] ED RN W/OE and Tasks Member Role: Patient Care Provider Name: Christal Brownlee Position: [facility] ED [facility] Member Role: Insurance Commissioner Name: Stephen Caro MD Position: [facility] ED Medicine MD Member Role: Admitting Physician Address: Address: [address] [place] [address] [place] Care Team Related Persons Name: KRISTAL FARMER Address: home [address] [place] [address] Name: DANIEL FARMER Address: [address] [place] [address] Name: KYUNG SHERIFF Address: [place] [address] Name: JON MIGUEL Address: home [address] [place] [address] Name: GUSTAVO GAMEZ Address: [address] Address: [address] [place] [address] [place]
--- OUTSIDE RECORDS SUMMARY | 2024-02-04 20:01 | XMS_ITS | Continuity of Care Document ---
Author Organization [facility] Address [address] [place] [address]- Care Team Providers Care Practicing Dermatologist Name Role Phone Kelly SUMNER, Bhavin Rodas Primary Care Physician Encounter [facility] Date(s): 09/06/19 - 10/07/[address] [address]- [facility] Attending Physician: Marilee Zafar MD Allergies, Adverse Reactions, Alerts Substance Reaction [...] constipation, 07/22/17 10:32:13, Route to Pharmacy Electronically, [id number], [id number] Start Date: 07/22/17 Stop Date: [...] 2, 3 2009 Active PTSD (Managed by [facility])(Confirmed) Active (Confirmed) Active H/O [...]
--- OUTSIDE RECORDS SUMMARY | 2024-02-04 20:01 | XMS_ITS | Continuity of Care Document ---
Author Organization [facility] Address [address] [place] [address]- Care Team Providers Care Wood Shingle Roofer Name Role Phone Kelly SUMNER, Bhavin Rodas Primary Care Physician Encounter [facility] Date(s): 10/11/19 - 11/10/19 [facility] [address] [place] [address]- [facility] Attending Physician: Neo Russell Admitting Physician: AdmtrNeo Referring Physician: Admtr, ArHayden Allergies, Adverse Reactions, Alerts Substance Reaction Severity [...] constipation, 07/22/17 10:32:13, Route to Pharmacy Electronically, [id number], [facility] Start Date: 07/22/17 Stop Date: [...] 3 Refills, Maintenance, 09/24/19 15:43:00 EDT, Tablet, [facility]1972, 1 tablet By Mouth Daily, 158, cm, 09/24/19 15:15:00 EDT, Height, 62, kg, 07/26/19 14:27:00 EDT, Dry Weight Start Date: 09/24/19 Status: Ordered Multivitamins with Folic Acid 1 mg oral tablet 1 tablet, By Mouth, Daily, # 90 tablet, 3 Refills, Maintenance, 06/08/19 10:58:00 EST, Tablet, [facility]1972, 1 tablet By Mouth Daily, 159, [...] reflux- GI notes in CIS 2CIS documentation 30214/2010 4CIS documentation Social History Social History Type Response Smoking Status Former smoker; Tobac co user in household: Yes; Number of years: 10; Total pack years: 5; Started at age: 17; Stopped at age: 28; entered on: 09/06/14 Sex Female
--- OUTSIDE RECORDS SUMMARY | 2024-02-04 20:01 | XMS_ITS | Continuity of Care Document ---
Author Organization [facility] Address [address] [place] [address]- Care Team Providers Care Cardiology Technician Name Role Bumper And PainterLokesh Denise MD Primary Care Physician [phone] Encounter [facility] Date(s): 10/16/20 - 11/15/[address] [address] Allergies, Adverse Reactions, Alerts Substance [...] 1, 2 2009 Active PTSD (Managed by [facility])(Confirmed) Active H/O Suicide ideation(Confirmed) 3 Active 1CIS documentation 3CIS documentation Social History Social History Type Response Smoking Status 5-9 cigarettes (betw een 1/4 to 1/2 pack)/day in last 30 days; Interested in cessation: No entered on: 11/03/20 Sex
--- OUTSIDE RECORDS SUMMARY | 2024-02-04 20:01 | XMS_ITS | Continuity of Care Document ---
Author Organization [facility] Address [address] [place] [address]- Care Team Providers Care Supervisor Weaving Name Role Senior Climate Advisor Lokesh SUMNER Primary Care Physician [phone] [place]counter [facility] [place] Date(s): 08/30/23 - 08/30/[address] [address]- Encounter Diagnosis Vaginal discomfort(Final) - 08/30/23 Discharge Disposition: A-D/C Home Attending Physician: Luciana Corona DO Admitting Physician: Luciana Corona DO Referring Physician: Not on Staff, Referring MD [...] 3 Confirmed Active 1CIS documentation 3CIS documentation Results Orders for Microbiology Reports Name Date Wet Prep 08/30/23 Microbiology Reports TEST:Wet Prep STATUS:Auth (Verified) BODY SITE: SOURCE:VAGINA COLLECTED DATE/TIME:08/30/23 12:05 PM Wet Prep SPECIMEN DESCRIPTION : VAGINAL SPECIMEN SPECIAL REQUESTS : NONE DIRECT EXAM : NO WBC'S SEEN NO CLUE CELLS OBSERVED NO TRICHOMONAS OBSERVED NO YEAST OBSERVED REPORT STATUS : FINAL 08/30/2023 Radiology Reports * Exam Date Time Procedure Performing Provider Status 08/30/23 3:38 PM US Pelvic Transvaginal Janeth Medrano ; Auth (Verified) Notes: (US Pelvic Transvaginal) Reason For Exam: Pelvic Pain;Other: RESULT: US Pelvic Transvaginal US Pelvic Transabdominal, US Pelvic Doppler Comp, US Pelvic Transvaginal Reason: Pelvic Pain; right lower quadrant pain. Clinical Question(s): Torsion; COMPARISON: 08/12/2014. TECHNIQUE: Transabdominal and transvaginal pelvic ultrasound with grayscale, color Doppler, and spectral Doppler analysis. FINDINGS: Suboptimal transvaginal examination due to uterine positioning. UTERUS: Size: 10.3 x 4.3 x 6.0 cm, volume 140.2 cc. Endometrial thickness: 0.7 cm. Morphology: Normal configuration and echotexture. RIGHT OVARY: Visualized transabdominally. Size: 2.3 x 1.9 x 2.3 cm, volume 5.4 cc. Morphology: Normal echotexture. No pathologic cysts or mass. Normal arterial and venous waveforms. LEFT OVARY: Visualized transabdominally. Size: 2.8 x 1.4 x 2.2 cm, volume 4.5 cc. Morphology: Normal echotexture. No pathologic cysts or mass. Normal arterial and venous waveforms. ADNEXA: Normal. No adnexal masses or fluid collections. IMPRESSION: No sonographic evidence of active ovarian torsion. Unremarkable uterus. WSN: [id number] Ordering Physician: Luis Hernandez Dictated By: Tab Van MD Dictated Date/Time: 08/30/23 4:08 pm Reviewed By: Tab Van MD Signed By: Tab Van MD Signed Date/Time: 08/30/23 4:08 pm Transcribed By: CLARIBEL Transcribed Date/Time: 08/30/23 3:59 pm * Exam Date Time Procedure Performing Provider Status 08/30/23 3:38 PM US Pelvic Doppler Comp Janeth Medrano ; Auth (Verified) Notes: (US Pelvic Doppler Comp) Reason For Exam: Pelvic Pain;Other: RESULT: US Pelvic Doppler Comp US Pelvic Transabdominal, US Pelvic Doppler Comp, US Pelvic Transvaginal Reason: Pelvic Pain; right lower quadrant pain. Clinical Question(s): Torsion; COMPARISON: 08/12/2014. TECHNIQUE: Transabdominal and transvaginal pelvic ultrasound with grayscale, color Doppler, and spectral Doppler analysis. FINDINGS: Suboptimal transvaginal examination due to uterine positioning. UTERUS: Size: 10.3 x 4.3 x 6.0 cm, volume 140.2 cc. Endometrial thickness: 0.7 cm. Morphology: Normal configuration and echotexture. RIGHT OVARY: Visualized transabdominally. Size: 2.3 x 1.9 x 2.3 cm, volume 5.4 cc. Morphology: Normal echotexture. No pathologic cysts or mass. Normal arterial and venous waveforms. LEFT OVARY: Visualized transabdominally. Size: 2.8 x 1.4 x 2.2 cm, volume 4.5 cc. Morphology: Normal echotexture. No pathologic cysts or mass. Normal arterial and venous waveforms. ADNEXA: Normal. No adnexal masses or fluid collections. IMPRESSION: No sonographic evidence of active ovarian torsion. Unremarkable uterus. WSN: [id number] Ordering Physician: Luis Hernandez Dictated By: Tab Van MD Dictated Date/Time: 08/30/23 4:08 pm Reviewed By: Tab Van MD Signed By: Tab Van MD Signed Date/Time: 08/30/23 4:08 pm Transcribed By: CLARIBEL Transcribed Date/Time: 08/30/23 3:59 pm * Exam Date Time Procedure Performing Provider Status 08/30/23 3:38 PM US Pelvic Transabdominal Manju Medrano ca; Auth (Verified) Notes: (US Pelvic Transabdominal) Reason For Exam: Pelvic Pain;Other: RESULT: US Pelvic Transabdominal US Pelvic Transabdominal, US Pelvic Doppler Comp, US Pelvic Transvaginal Reason: Pelvic Pain; right lower quadrant pain. Clinical Question(s): Torsion; COMPARISON: 08/12/2014. TECHNIQUE: Transabdominal and transvaginal pelvic ultrasound with grayscale, color Doppler, and spectral Doppler analysis. FINDINGS: Suboptimal transvaginal examination due to uterine positioning. UTERUS: Size: 10.3 x 4.3 x 6.0 cm, volume 140.2 cc. Endometrial thickness: 0.7 cm. Morphology: Normal configuration and echotexture. RIGHT OVARY: Visualized transabdominally. Size: 2.3 x 1.9 x 2.3 cm, volume 5.4 cc. Morphology: Normal echotexture. No pathologic cysts or mass. Normal arterial and venous waveforms. LEFT OVARY: Visualized transabdominally. Size: 2.8 x 1.4 x 2.2 cm, volume 4.5 cc. Morphology: Normal echotexture. No pathologic cysts or mass. Normal arterial and venous waveforms. ADNEXA: Normal. No adnexal masses or fluid collections. IMPRESSION: No sonographic evidence of active ovarian torsion. Unremarkable uterus. WSN: [id number] Ordering Physician: Luis Hernandez Dictated By: Tab Van MD Dictated Date/Time: 08/30/23 4:08 pm Reviewed By: Tab Van MD Signed By: Tab Van MD Signed Date/Time: 08/30/23 4:08 pm Transcribed By: CLARIBEL Transcribed Date/Time: 08/30/23 3:59 pm Vital Signs Most recent to oldest [Reference Range]: 1 2 Height 158 cm (08/30/23 5:55 AM) Weight 74.7 kg (08/30/23 5:55 AM) Oxygen Saturation [94-100 %] 98 % (08/30/23 5:15 PM) 99 % (08/30/23 5:55 AM) Pulse Rate [55-90 bpm] 90 bpm (08/30/23 5:15 PM) 94 bpm *H* (08/30/23 5:55 AM) Body Mass Index [18.5-24.99 kg/m2] 29.92 kg/m2 *H* (08/30/23 5:55 AM) Blood Pressure [90-138/55-84 mm Hg] 110/ 60mm Hg (08/30/23 5:15 PM) 111/59mm Hg (08/30/23 5:55 AM) Respiratory Rate [16-30 br/min] 18 br/mi n (08/30/23 5:15 PM) 18 br/min (08/30/23 5:55 AM) Temperature [96.8-100.4 DegF] 97.8 DegF (08/30/23:15 PM) 97.9 DegF (08/30/23 5:55 AM) Mode of Delivery (Oxygen) Room air (08/30/23 5:15 PM) Room air (08/30/23 5:55 AM) Blood pressure sites Arm, left (08/30/23 5:15 PM) Arm, left (08/30/23 5:55 AM) Temperature Route Oral (08/30/23 5:15 PM) Oral (08/30/23 5:55 AM) Dry Weight 74.7 kg (08/30/23 5:55 AM) Weight Obtained Via Standing scale (08/30/23 5:55 AM) Dry Weight Obtained Via Standing scale (08/30/23 5:55 AM) Social History Social History Type Response Smoking Status Former smoker, quit more than 30 days ago entered on: 11/04/21 Sex Patient Care team information Care Team Personnel Name: Banker SUMNER, Lokesh Lemus Position: [facility] Physician - Primary Care Member Role: PCP Address: Address: [address] [place] [address] Name: Bhavna VEGA, Jose Quintana Position: [facility] RN Member Role: Primary Care Nurse Care Team Related Persons Name: KRISTAL FARMER Address: [address] [place] [address] Name: DANIEL FARMER Address: [address] [place] [address] Name: KYUNG SHERIFF Address: [place] [address] Name: JON MIGUEL Address: [address] [place] [address] Name: GUSTAVO GAMEZ Address: [id number] Address: [address] [place] [address]
--- OUTSIDE RECORDS SUMMARY | 2024-02-04 20:01 | XMS_ITS | Continuity of Care Document ---
Author Organization [facility] Address [address] [place] [address]- Care Team Providers Care Recyclable Materials Collector Name Role Area Mechanic , Lokesh Lemus Primary Care Physician [phone] Encounter [facility] Date(s): 02/05/21 - 04/04/[address] [address]- Attending Physician: Not on Staff, Attending MD [...] 1, 2 2009 Active PTSD (Managed by [facility])(Confirmed) Active H/O Suicide ideation(Confirmed) 3 Active 1CIS documentation 3CIS documentation Social History Social History Type Response Smoking Status 5-9 cigarettes (betw een 1/4 to 1/2 pack)/day in last 30 days; Interested in cessation: No entered on: 11/03/20 Sex
--- OUTSIDE RECORDS SUMMARY | 2024-02-04 20:01 | XMS_ITS | Continuity of Care Document ---
Author Organization [facility] Address [address] [place] [address]- Care Team Providers Care Cutter Banana Room Name Role Phone Kelly SUMNER, Bhavin Rodas Primary Care Physician [place] [facility] [place]/04/20 - 02/10/[address] [address]- [facility] Attending Physician: Not on Staff, Attending [...] constipation, 07/22/17 10:32:13, Route to Pharmacy Electronically, [id number], [id number] Start Date: 07/22/17 Stop Date: 01/18/18 Status: Ordered famotidine 10 mg oral tablet 1 tablet = 10 mg, By Mouth, 2 times a day, # 28 tablet, 0 Refills, Maintenance, 12/17/19 16:14:00 EDT, Tablet, [facility]/pharmacy #1972, 158, cm, 12/17/19 15:52:00 EDT, Height, 62, kg, 07/26/19 14:27:00 EDT, Dry Weight Start Date: 12/17/19 Status: Ordered ferrous sulfate 325 mg oral tablet 1 tablet = 325 mg, By Mouth, 3 times a day, # 120 tablet, 2 Refills, Maintenance, 01/04/20 8:50:00 EDT, [facility]/pharmacy #1972, 158, cm, 01/03/20 13:07:00 EDT, Height, 73.2, kg, 12/27/19 21:44:00 EDT, Dry Weight Start Date: 01/04/20 Status: Ordered ibuprofen 600 mg oral tablet 600 mg, 1, tablet, By Mouth, Every 6 hours, PRN, # 30 tablet, Refills 1, Tot. Refills 1, Acute 02/23/20 15:47:00 EDT, Pain , Moderate, 02/03/20 15:47:00 EDT, Route to Pharmacy Electronically, [facility]/pharmacy #[id number], 158, cm, 02/03/20 15:36:00 EDT, Height,... [...] 02/03/20 15:47:00 EDT, Route to Pharmacy Electronically, [facility]/pharmacy #[id number], Partial fill upon patient request, 158... Start Date: 02/03/20 Stop Date: 02/23/20 Status: Ordered Multivitamins with Folic Acid 1 mg oral tablet 1 tablet, By Mouth, Daily, # 90 tablet, 3 Refills, Maintenance, 06/08/19 10:58:00 EST, Tablet, [facility]/pharmacy #1972, 1 tablet By Mouth Daily, 159, cm, 05/29/19 13:36:00 EST, Height, 58.7, kg, 11/19/18 21:43:00 EDT, Dry Weight Start Date: 06/08/19 Status: Ordered simethicone 80 mg oral tablet 1 tablet = 80 mg, Chew, 3 times a day after meals, PRN as needed for gas, # 60 tablet, 0 Refills, Acute 02/23/20 15:47:00 EDT, 02/03/20 15:47:00 EDT, Tablet, [facility]/pharmacy #[id number], 158, cm, 02/03/20 15:36:00 EDT, Height, [...] 2, 3 2009 Active PTSD (Managed by [facility])(Confirmed) Active (Confirmed) Active H/O [...]
--- OUTSIDE RECORDS SUMMARY | 2024-02-04 20:01 | XMS_ITS | Continuity of Care Document ---
Author Organization [facility] Address [address] [place] [address]- Care Team Providers Care Administrator Name Role Critical Power Technician MD, Lokesh Lemus Primary Care Physician Encounter [facility] Date(s): 01/14/22 - 02/13/[address] [address] Attending Physician: Neo Russell Admitting Physician: Neo Russell Referring Physician: AdmNeo bowles Allergies, Adverse Reactions, Alerts Substance Reaction Severity [...] 11/04/21 19:04:00 EDT, Route to Pharmacy Electronically, [facility]/pharmacy #[id number], Partial fill upon patient request if the prescription is for a schedule II opioid drug.,... Start Date: 11/04/21 Status: Ordered Sprintec 0.25 mg-35 mcg oral tablet 1 tablet, By Mouth, Daily, Maintenance, # 84 tablet, 2 Refills, Maintenance, 11/04/21 19:11:00 EDT,[facility]/pharmacy #[id number], Partial fill upon patient request if the [...] 2009 Active PTSD (Managed by [facility]) Confirmed Active H/O Suicide ideation 3 Confirmed Active 1CIS documentation 3CIS documentation Social History Social History Type Response Smoking Status Former smoker, quit more than 30 days ago entered on: 11/04/21 Sex Patient Care team information Personnel Name: Banker SUMNER, Lokesh Lemus Address: Address: [address] [place] [address]
--- OUTSIDE RECORDS SUMMARY | 2024-02-04 20:01 | XMS_ITS | Continuity of Care Document ---
Author Organization [facility] Address [address] [place] [address]- Care Team Providers Care Bait Painter Name Role Phone Kelly SUMNER, Bhavin Rodas Primary Care Physician Encounter [facility] [place] Date(s): 09/26/19 - 11/01/[address] [address]- [facility] Attending Physician: Bo Monk MD Admitting Physician: Bo Monk MD Referring Physician: Letitia Walton MD Allergies, Adverse Reactions, Alerts Substance Reaction [...] constipation, 07/22/17 10:32:13, Route to Pharmacy Electronically, [id number], [facility] Start Date: 07/22/17 Stop Date: [...] 3 2009 Active PTSD (Managed by [facility])(Confirmed) Active (Confirmed) Active H/O Suicide ideation(Confirmed) 4 Active 1acid reflux- GI notes in CIS 2CIS documentation 69378/2010 4CIS documentation Social History Social History Type Response Smoking Status Former smoker; Tobac co user in household: Yes; Number of years: 10; Total pack years: 5; Started at age: 17; Stopped at age: 28; entered on: 09/06/14 Sex Female
--- OUTSIDE RECORDS SUMMARY | 2024-02-04 20:01 | XMS_ITS | Continuity of Care Document ---
Author Organization [facility] Address [address] [place] [address]- Care Team Providers Care Cruise Director Name Role Associate Creative Director MD, Lokesh Lemus Primary Care Physician Encounter [facility] Date(s): 02/04/21 - 03/06/[address] [address] Allergies, Adverse Reactions, Alerts [...] 1, 2 2009 Active PTSD (Managed by [facility])(Confirmed) Active H/O Suicide ideation(Confirmed) 3 Active 1CIS documentation 3CIS documentation Social History Social History Type Response Smoking Status 5-9 cigarettes (betw een 1/4 to 1/2 pack)/day in last 30 days; Interested in cessation: No entered on: 11/03/20 Sex
--- OUTSIDE RECORDS SUMMARY | 2024-02-04 20:01 | XMS_ITS | Continuity of Care Document ---
Author Organization [facility] Address [address] [place] [address]- Care Team Providers Care Newspaper Reporter Name Role Machine Builder MD, Lokesh Lemus Primary Care Physician [phone] Encounter [facility] Date(s): 08/05/20 - 09/04/[address] [address] Attending Physician: Neo Russell Admitting Physician: [...] constipation, 07/22/17 10:32:13, Route to Pharmacy Electronically, [id number], [facility]/pharmacy #1972 Start Date: [...] 2, 3 2009 Active PTSD (Managed by [facility])(Confirmed) Active (Confirmed) Active H/O Suicide ideation(Confirmed) 4 Active 1acid reflux- GI notes in CIS 2CIS documentation 4CIS documentation Social History Social History Type Response Smoking Status Former smoker; Tobac co user in household: Yes; Number of years: 10; Total pack years: 5; Started at age: 17; Stopped at age: 28; entered on: 09/06/14 Sex
--- OUTSIDE RECORDS SUMMARY | 2024-02-04 20:01 | XMS_ITS | Continuity of Care Document ---
Author Organization [facility] Address [address] [place] [address]- Care Team Providers Care Head Porter Baggage Name Role Stitcher Set Up Operator AutomaticLokesh Denise MD Primary Care Physician Encounter [facility] [place] Date(s): 11/10/22 - 12/10/[address] [address] Allergies, Adverse Reactions, Alerts Substance [...] 2 Confirmed 2009 Active PTSD (Managed by [facility]) Confirmed Active H/O Suicide ideation 3 Confirmed Active 1CIS documentation 3CIS documentation Social History Social History Type Response Smoking Status Former smoker, quit more than 30 days ago entered on: 11/04/21 Sex Patient Care team information Care Team Personnel Name: Lokesh Denise MD Position: S Physician - Primary Care Member Role: PCP Address: Address: [address] [place] [address]- Name: Bhavna VEGA, Jose Quintana Position: S RN Member Role: Primary Care Nurse Care Team Related Persons Name: SHAYY FARMERJARVIS Address: [address] [place] [address] Name: DANIEL FARMER Address: [address] [place] [address] Name: KYUNG SHREIFF Address: [place] [address] Name: JON MIGUEL Address: [address] [place] [address] Name: GUSTAVO GAMEZ Address: [address] Address: home [address] [place] [address] [place]
--- OUTSIDE RECORDS SUMMARY | 2024-02-04 20:01 | XMS_ITS | Continuity of Care Document ---
Author Organization [facility] Address [address] [place] [address]- Care Team Providers Care Escape Wheel Tooth Cutter Name Role Rn Occupational Health , Lokesh Lemus Primary Care Physician Encounter [facility] Date(s): 05/30/20 - 08/08/[address] [address] Attending Physician: Not on Staff, Attending MD [...] constipation, 07/22/17 10:32:13, Route to Pharmacy Electronically, [id number], [facility] Start Date: 07/22/17 Stop Date: [...] 2, 3 2009 Active PTSD (Managed by [facility])(Confirmed) Active (Confirmed) Active H/O Suicide ideation(Confirmed) 4 Active 1acid reflux- GI notes in CIS 2CIS documentation 440[address]/2010 4CIS documentation Social History Social History Type Response Smoking Status Former smoker; Tobac co user in household: Yes; Number of years: 10; Total pack years: 5; Started at age: 17; Stopped at age: 28; entered on: 09/06/14 Sex
--- OUTSIDE RECORDS SUMMARY | 2024-02-04 20:01 | XMS_ITS | Continuity of Care Document ---
Author Organization [facility] Address [address] [place] [address]- Care Team Providers Care Environmental Journalist Name Role Medical PhotographerLokesh Denise MD Primary Care Physician Encounter [facility] [place] [facility] [id number] Date(s): 09/07/23 - 10/07/[address] [address] Attending Physician: Admtr, Ar8 Allergies, Adverse Reactions, [...] Soft Stop, 09/07/23 11:46:00 EDT, Tablet, [id number], Partial fill upon patient request if the [...] 2 Confirmed 2010 Active PTSD (Managed by [facility]) Confirmed Active H/O Suicide ideation 3 Confirmed Active 1CIS documentation 3CIS documentation Social History Social History Type Response Smoking Status Former smoker, quit more than 30 days ago entered on: 11/04/21 Sex Patient Care team information Care Team Personnel Name: Banker SUMNER, Lokesh Lemus Position: [facility] Physician - Primary Care Member Role: PCP Address: Address: [address] [place] [address] Name: Bhavna VEGA, Jose Quintana Position: [facility] RN Member Role: Primary Care Nurse Care Team Related Persons Name: KRISTAL FARMER Address: [address] [place] [address] Name: DANIEL FARMER Address: home [address] [place] [address] Name: KYUNG SHERIFF Address: [place] [address] Name: JON MIGUEL Address: home [address] [place] [address] Name: GUSTAVO GAMEZ Address: [address] Address: [address] [place] [address]
--- OUTSIDE RECORDS SUMMARY | 2024-02-04 20:01 | XMS_ITS | Continuity of Care Document ---
Author Organization [facility] Address [address] [place] [address]- Care Team Providers Care Geriatric Nurse Practitioner Name Role Phone Prior Palmer COLVIN Primary Care Physician [place] [facility] [place] Date(s): 04/04/20 - 05/18/[address] [address] Attending Physician: Not on Staff, Attending MD [...] constipation, 07/22/17 10:32:13, Route to Pharmacy Electronically, [id number], [facility] Start Date: 07/22/17 Stop Date: [...] 2, 3 2009 Active PTSD (Managed by [facility])(Confirmed) Active (Confirmed) Active H/O Suicide ideation(Confirmed) 4 Active 1acid reflux- GI notes in CIS 2CIS documentation 05339/2010 4CIS documentation Social History Social History Type Response Smoking Status Former smoker; Tobac co user in household: Yes; Number of years: 10; Total pack years: 5; Started at age: 17; Stopped at age: 28; entered on: 09/06/14 Sex
--- OUTSIDE RECORDS SUMMARY | 2024-02-04 20:01 | XMS_ITS | Continuity of Care Document ---
Author Organization [facility] Address [address] [place] [address]- Care Team Providers Care Medicine Technologist Name Role Phone Kelly SUMNER, Bhavin Rodas Primary Care Physician En[place] [facility] [place] R [id number] Date(s): 09/07/19 - 10/07/[address] [address]- [facility] Attending Physician: Admtr, Ar8 Allergies, Adverse Reactions, [...] constipation, 07/22/17 10:32:13, Route to Pharmacy Electronically, [id number], [facility] Start Date: 07/22/17 Stop Date: [...] 2009 Active PTSD (Managed by [facility])(Confirmed) Active (Confirmed) Active H/O Suicide ideation(Confirmed) 4 Active 1acid reflux- GI notes in CIS 2CIS documentation 4CIS documentation Social History Social History Type Response Smoking Status Former smoker; Tobac co user in household: Yes; Number of years: 10; Total pack years: 5; Started at age: 17; Stopped at age: 28; entered on: 09/06/14 Sex Female
--- OUTSIDE RECORDS SUMMARY | 2024-02-04 20:01 | XMS_ITS | Continuity of Care Document ---
Author Organization [facility] Address [address] [place] [address]- Care Team Providers Care Knitting Tester Name Role Internal Consultant MD, Lokesh Lemus Primary Care Physician [place] [facility] [place] Date(s[place] 10/19/22 - 11/18/[address] [address] Attending Physician: Neo Russell Admitting Physician: AdmNeo [...] 2 Confirmed 2009 Active PTSD (Managed by [facility]) Confirmed Active H/O Suicide ideation 3 Confirmed Active 1CIS documentation 3CIS documentation Social History Social History Type Response Smoking Status Former smoker, quit more than 30 days ago entered on: 11/04/21 Sex Patient Care team information Care Team Personnel Name: Banker SUMNER, Lokesh Lemus Position: [facility] Physician - Primary Care Member Role: PCP Address: Address: [address] [place] [address] Name: Bhavna VEGA, Jose Quintana Position: [facility] RN Member Role: Primary Care Nurse Care Team Related Persons Name: AYLA FARMERBRYSONJony Address: home [address] [place] [address] Name: DANIEL FARMER Address: [address] [place] [address] Name: KYUNG SHERIFF Address: [place] [address] Name: JON MIGUEL Address: [address] [place] [address] Name: UGSTAVO GAMEZ Address: Address: [address] [place] [address]
--- OUTSIDE RECORDS SUMMARY | 2024-02-04 20:01 | XMS_ITS | Continuity of Care Document ---
Author Organization [facility] Address [address] [place] [address]- Care Team Providers Care Traffic Technician Name Role Phone Kelly SUMNER, Bhavin Rodas Primary Care Physician Encounter [facility] Date(s): 02/01/20 - 02/03/[address] [address]- [facility] Discharge Disposition: A-D/C Home Attending Physician: Iona Manzo MD Admitting Physician: Iona Manzo MD Referring Physician: Iona Manzo MD Allergies, Adverse Reactions, Alerts Substance Reaction [...] constipation, 07/22/17 10:32:13, Route to Pharmacy Electronically, [id number], [facility]/pharmacy #[id number] Start Date: 07/22/17 Stop Date: 01/18/18 Status: Ordered famotidine 10 mg oral tablet 1 tablet = 10 mg, By Mouth, 2 times a day, # 28 tablet, 0 Refills, Maintenance, 12/17/19 16:14:00 EDT, Tablet, [facility]/pharmacy #1972, 158, cm, 12/17/19 15:52:00 EDT, [...] 02/03/20 15:47:00 EDT, Route to Pharmacy Electronically, [facility]/pharmacy #[id number], 158, cm, 02/03/20 15:36:00 EDT, [...] 02/03/20 15:47:00 EDT, Route to Pharmacy Electronically, [facility]/pharmacy #[id number], Partial fill upon patient request, 158... Start Date: 02/03/20 Stop Date: 02/23/20 Status: Ordered Multivitamins with Folic Acid 1 mg oral tablet 1 tablet, By Mouth, Daily, # 90 tablet, 3 Refills, Maintenance, 06/08/19 10:58:00 EST, Tablet, [facility]/pharmacy #[id number], 1 tablet By Mouth Daily, 159, cm, 05/29/19 13:36:00 EST, Height, 58.7, kg, 11/19/18 21:43:00 EDT, Dry Weight Start Date: 06/08/19 Status: Ordered simethicone 80 mg oral tablet 1 tablet = 80 mg, Chew, 3 times a day after meals, PRN as needed for gas, # 60 tablet, 0 Refills, Acute 02/23/20 15:47:00 EDT, 02/03/20 15:47:00 EDT, Tablet, [facility]/pharmacy #[id number], 158, cm, 02/03/20 15:36:00 EDT, Height, [...] 2, 3 2009 Active PTSD (Managed by [facility])(Confirmed) Active (Confirmed) Active H/O Suicide ideation(Confirmed) 4 Active 1acid reflux- GI notes in CIS 2CIS documentation 4CIS documentation Procedures Procedure Date Related Diagnosis Body Site Status delivery only; 02/01/20 C ompleted Vital Signs Most recent to oldest [Reference Range]: 1 2 3 Height 158 cm (02/03/20 3:36 PM) 158 cm (02/03/20 8:39 AM) 158 cm (02/03/20 12:00 AM) Weight 73 kg (02/01/20 9:00 AM) Oxygen Saturation [94-100 %] 97 % (02/03/20 3:36 PM) 96 % (02/03/20 8:39 AM) 99 % (02/03/20 12:00 AM) Pulse Rate [55-90 bpm] 94 bpm *H* (02/03/20 3:36 PM) 80 bpm (02/03/20 8:39 AM) 86 bpm (02/03/20 12:00 AM) Body Mass Index [18.5-24.99] 29.24 *H* (02/01/20 9:00 AM) Blood Pressure [90-138/55-84 mm Hg] 101/62mm Hg (02/03/20 3:36 PM) 104/55mm Hg (02/03/20 8:39 AM) 109/59mm Hg (02/03/20 12:00 AM) Respiratory Rate [16-30 br/min] 18 br/min (02/03/20 3:36 PM) 18 br/min (02/03/20 11:30 AM) 20 br/min (02/03/20 8:39 AM) Temperature [96.8-100.4 DegF] 98.4 DegF (02/03/20 3:36 PM) 98.4 DegF (02/03/20 8:39 AM) 97.6 DegF (02/03/20 12:00 AM) Mode of Delivery (Oxygen) Room air (02/03/20 3:36 PM) Room air (02/03/20 8:39 AM) Room air (02/03/20 12:00 AM) Blood pressure sites Arm, right (02/03/20 3:36 PM) Arm, right (02/03/20 8:39 AM) Arm, left (02/03/20 12:00 AM) Temperature Route Oral (02/03/20 3:36 PM) Oral (02/03/20 8:39 AM) Oral (02/03/20 12:00 AM) Dry Weight 73 kg (02/01/20 9:00 AM) Social History Social History Type Response Smoking Status Former smoker; Tobac co user in household: Yes; Number of years: 10; Total pack years: 5; Started at age: 17; Stopped at age: 28; entered on: 09/06/14 Sex Female
--- OUTSIDE RECORDS SUMMARY | 2024-02-04 20:01 | XMS_ITS | Continuity of Care Document ---
Author Organization [facility] Address [address] [place] [address]- Care Team Providers Care Patrol Officer Name Role Phone Kelly SUMNER, Bhavin Rodas Primary Care Physician Encounter [facility] [place] [place] Date(s): 11/27/19 - 01/06/[address] [address]- [facility] Attending Physician: Not on Staff, [...] constipation, 07/22/17 10:32:13, Route to Pharmacy Electronically, [id number], [facility]/pharmacy #[id number] Start Date: 07/22/17 Stop Date: 01/18/18 [...]
--- OUTSIDE RECORDS SUMMARY | 2024-02-04 20:01 | XMS_ITS | Continuity of Care Document ---
Author Organization [facility] Address [address] [place] [address]- Care Team Providers Care Pressure Dispatcher Name Role Surveillance SupervisorLokesh Denise MD Primary Care Physician Encounter [facility] Date(s): 08/31/23 - 09/30/[address] [address] Allergies, Adverse Reactions, Alerts [...] Soft Stop, 09/07/23 11:46:00 EDT, Tablet, [id number], Partial fill upon patient request if the [...] 2 Confirmed 2009 Active PTSD (Managed by [facility]) Confirmed Active H/O Suicide ideation 3 Confirmed Active 1CIS documentation 3CIS documentation Social History Social History Type Response Smoking Status Former smoker, quit more than 30 days ago entered on: 11/04/21 Sex Patient Care team information Care Team Personnel Name: Banker SUMNER, Lokesh Lemus Position: [facility] Physician - Primary Care Member Role: PCP Address: Address: [address] [place] [address] Name: Bhavna VEGA, Jose Quintana Position: [facility] RN Member Role: Primary Care Nurse Care Team Related Persons Name: KRISTAL FARMER Address: [address] [place] [address] Name: DANIEL FARMER Address: home [address] [place] [address] Name: KYUNG SHERIFF Address: [place] [address] Name: JON MIGUEL Address: [address] [place] [address] Name: GUSTAVO GAMEZ Address: [address] Address: home [address] [place] [address]
--- OUTSIDE RECORDS SUMMARY | 2024-02-04 20:01 | XMS_ITS | Continuity of Care Document ---
Author Organization [facility] Address [address] [place] [address]- Care Team Providers Care Manager Assessment Name Role Preschool Teacher MD, Lokesh Lemus Primary Care Physician Encounter [facility] Date(s): 03/05/21 - 04/04/[address] [address] Attending Physician: Neo Russell Admitting Physician: [...] 1, 2 2009 Active PTSD (Managed by [facility])(Confirmed) Active H/O Suicide ideation(Confirmed) 3 Active 1CIS documentation 3CIS documentation Social History Social History Type Response Smoking Status 5-9 cigarettes (betw een 1/4 to 1/2 pack)/day in last 30 days; Interested in cessation: No entered on: 11/03/20 Sex
--- OUTSIDE RECORDS SUMMARY | 2024-02-04 20:01 | XMS_ITS | Continuity of Care Document ---
Author Organization [facility] Address [address] [place] [address]- Care Team Providers Care Concrete Block Layer Name Role Phone Bhavin Mendoza MD Primary Care Physician Encounter [place] Date(s): 01/25/20 - 02/24/[address] [address]- [facility] Allergies, Adverse Reactions, Alerts Substance Reaction [...] constipation, 07/22/17 10:32:13, Route to Pharmacy Electronically, [id number], [facility]/pharmacy #1972 Start Date: 07/22/17 [...] 2, 3 2009 Active PTSD (Managed by [facility])(Confirmed) Active (Confirmed) Active H/O Suicide ideation(Confirmed) 4 Active 1acid reflux- GI notes in CIS 2CIS documentation 12284/2010 4CIS documentation Social History Social History Type Response Smoking Status Former smoker; Tobac co user in household: Yes; Number of years: 10; Total pack years: 5; Started at age: 17; Stopped at age: 28; entered on: 09/06/14 Sex
--- OUTSIDE RECORDS SUMMARY | 2024-02-04 20:01 | XMS_ITS | Continuity of Care Document ---
Author Organization [facility] Address [address] [place] [address]- Care Team Providers Care Learning And Development Coordinator Name Role Belt Machine OperatorLokesh Denise MD Primary Care Physician [phone] Encounter [facility] Date(s): 07/05/23 - 07/05/[address] [address]- Discharge Disposition: A-D/C Walkout Attending Physician: Not on Staff, Attending MD [...] 2 Confirmed 2009 Active PTSD (Managed by [facility]) Confirmed Active H/O Suicide ideation 3 Confirmed Active 1CIS documentation 3CIS documentation Vital Signs Most recent to oldest [Reference Range]: 1 Oxygen Saturation [94-100 %] 97 % (07/05/23 12:14 AM) Pulse Rate [55-90 bpm] 112 bpm *H* (07/05/23 12:14 AM) Blood Pressure [90-138/55-84 mm Hg] 95/7 7mm Hg (07/05/23 12:14 AM) Respiratory Rate [16-30 br/min] 18 br/mi n (07/05/23 12:14 AM) Temperature [96.8-100.4 DegF] 99.0 DegF (07/05/23 12:14 AM) Mode of Delivery (Oxygen) Room air (07/05/23 12:14 AM) Blood pressure sites Arm, left (07/05/23 12:14 AM) Temperature Route Oral (07/05/23 12:14 AM) Dry Weight 74.8 kg (07/05/23 12:14 AM) Dry Weight Obtained Via Standing scale (07/05/23 12:14 AM) Social History Social History Type Response Smoking Status Former smoker, quit more than 30 days ago entered on: 11/04/21 Sex Patient Care team information Care Team Personnel Name: Banker SUMNER, Lokesh Lemus Position: [facility] Physician - Primary Care Member Role: PCP Address: Address: [address] [place] [address] Name: Bhavna RN, Jose Quintana Position: [facility] RN Member Role: Primary Care Nurse Care Team Related Persons Name: KRISTAL FARMER Address: home [address] [place] [address] Name: DANIEL FARMER Address: home [address] [place] [address] Name: KYUNG SHERIFF Address: [place] [address] Name: JON MIGUEL Address: home [address] [place] [address] Name: GUSTAVO GAMEZ Address: [address] Address: home [address] [place] [address]
--- OUTSIDE RECORDS SUMMARY | 2024-02-04 20:02 | XMS_ITS ---
Author Organization [facility] Address [address] [place], [place] [address] Care Team Providers Care Tire Builder Operator Name Role Phone Arsen Jimenez Unavailable Kishor Monge Unavailable [phone] Encounters Encounter Location Date Provider Diagnosis [facility] [address] [place] [phone] 08/15/2023 Kishor Monge PLAN OF TREATMENT No Information History and Physical Notes * HPI (History of Present Illness) Category Sub-Category Detail Notes Social Service Referral Source walk-in, self, r eturning client Interpretation for medical provider Mass ID, Certificate, Mail pick up driver Action taken (old) form completion: InT k, mail intk, bcapplication, authorization to release info Follow-up Required: yes, Type of follow- up: CM Pt comprehension Pt agrees with plan, Patient understood process and assisted with process Date of encounter [id number]
--- OUTSIDE RECORDS SUMMARY | 2024-02-04 20:02 | XMS_ITS | Patient Health Record ---
Author Organization [facility] Address [address], [place] [address] Care Team Providers Care Advanced Manufacturing Engineer Name Role Phone Arsen Jimenez Unavailable [phone] Hermelinda Krishnan Unavailable Kishor Monge Unavailable [phone] REASON FOR REFERRAL No Information SOCIAL HISTORY Sex Assigned At : Social History Observation Description Sex Assigned At Unknown Encounters Encounter Location Date Provider Diagnosis [facility] [address] [place], [place] [phone] 08/15/2023 Kishor Monge [facility] [phone] 11/10/2023 Hermelinda Krishnan PLAN OF TREATMENT No Information Insurance Providers Payer Name Payer Address Payer Phone Subscriber Number Group Number Insured Name Patient Relationship to Insured Coverage Start Date Coverage End Date [facility] Be Healthy [address] [place] [address] [phone] [id number] Jose Dc Self - patient is the insured [place] Medicaid Standard [address] [place] [address] [id number] Jose Dc Self - patient is the insured
--- OUTSIDE RECORDS SUMMARY | 2024-02-04 20:02 | XMS_ITS ---
Author Organization [facility] Address [address] [place], [place] [id number] Care Team Providers Care Screen Door Maker Name Role Phone Arsen Jimenez Unavailable [phone] Hermelinda Krishnan Unavailable [phone] Encounters Encounter Location Date Provider Diagnosis [facility] [address] [place] [phone] 11/10/2023 Hermelinda Krishnan PLAN OF TREATMENT No Information History and Physical Notes * HPI (History of Present Illness) Category Sub-Category Detail Notes Social Service Referral Source walk-in, self, r eturning client Interpretation for medical provider Mass ID, Mail warehouse order picker Action taken (old) Items given to clien t: mail Follow-up Required: yes: CM Pt comprehension Pt agrees with plan, Patient understood process and assisted with process Date of encounter
== END 2024-02-04 20:06 | disposition home or self-care (01) ==
LOC: HO.ED 19:58
PROVIDERS: Emergency Provider Internal Medicine
DX: F43.22 Adjustment disorder with anxiety (principal); F20.9 Schizophrenia, unspecified; Z20.6 Contact with and (suspected) exposure to human immunodeficiency virus [HIV]
CPT/HCPCS: 99282

== ENCOUNTER 2024-07-24 15:02 | Emergency (ER) | payer OTHER, SELFPAY ==
[2024-07-24 15:14] VITALS: BP 107/62; PULSE 76; RESP 18; TEMP 36.9; O2SAT 98; BMI 27.3
--- NOTE | 2024-07-24 15:15 | ECG_ITS ---
Test Reason : DIZZINESS Blood Pressure : */* mmHG Vent. Rate : 68 BPM Atrial Rate : 68 BPM P-R Int : 186 ms QRS Dur : 92 ms QT Int : 392 ms P-R-T Axes : 59 52 56 degrees QTcB Int : 416 ms Normal sinus rhythm Normal ECG When compared with ECG of 01-Feb-2023 14:21, No significant change was found Referred By: Manish Padilla Electronically Signed By: LIEN ALVES
--- NOTE | 2024-07-24 15:15 | ED.GENADULT ---
HPI - General Adult General Chief complaint: Dizziness Stated complaint: dizziness/feeling off balance Related Data Home Medications ?Medication ?Instructions ?Recorded ?Confirmed No Known Home Meds 02/04/24 02/04/24 Allergies Allergy/AdvReac Type Severity Reaction Status Date / Time diphenhydramine Allergy Unknown ANXIETY Verified 07/24/24 15:16 [From BENADRYL] latex Allergy Rash Verified 07/24/24 15:16 garlic [GARLIC] AdvReac Severe STOMACH Verified 07/24/24 15:16 UPSET onion [ONION] AdvReac Severe STOMACH Verified 07/24/24 15:16 UPSET FOODS WITH ACID AdvReac Severe STOMACH Uncoded 02/04/24 18:29 UPSET PMFSH Social History Social History Advance Directives: No Advance Directives Information Provided: No Physical Exam ED Vital Signs: Vital Signs - 24 hr 07/24/24 15:14 07/24/24 17:32 Temperature 98.4 F 97.8 F Pulse Rate 76 83 Respiratory Rate 18 16 Blood Pressure 107/62 143/71 H Pulse Oximetry 98 95 Oxygen Delivery Method Room Air Room Air BMI result Body Mass Index 27.3 Course Course Course Narrative: RME, this is a rapid medical exam performed by Morro Padilla please refer to primary provider for complete H&P- 39-year-old female presents for evaluation of dizziness that started this morning. She was ambulatory with a steady, even gait. Plan for labs, EKG Medical Decision Making Lab Data 07/24/24 16:03 07/24/24 16:03 Labs: Lab Results 07/24/24 Range/Units 16:03 WBC 4.5 L (4.8-10.8) X10*3/uL RBC 3.71 L (4.20-5.50) X10*6/uL Hgb 10.8 L (12.0-16.0) g/dl Hct 33.0 L (37.0-47.0) % MCV 88.9 (80.0-98.0) fL MCH 29.1 (27.0-33.0) pg MCHC 32.7 (31.0-35.0) g/dl RDW 14.4 (11.0-16.0) % Plt Count 236 (160-400) X10*3/uL MPV 10.2 (9.4-12.3) fL Immature Gran % (Auto) 0.2 (0.0-0.4) % Neut % (Auto) 54.9 (45-73) % Lymph % (Auto) 34.4 (20-40) % [place] % (Auto) 8.7 (2-11) % Eos % (Auto) 0.9 (0-4) % Baso % (Auto) 0.9 (0-2) % Lymph # (Auto) 1.5 (1.2-4.9) X10*3/uL [place] # (Auto) 0.4 (0.1-1.2) X10*3/uL Eos # (Auto) 0.0 (0.0-0.4) X10*3/uL Baso # (Auto) 0.0 (0.0-0.2) X10*3/uL Abs Immat Gran (auto) 0.01 (0.00-0.03) X10*3/uL Absolute Neuts (auto) 2.5 (2.0-8.3) x10*3/uL Absolute Nucleated RBC 0.000 (0.0-0.012) X10*3/uL Nucleated RBC % (auto) 0.0 (0.0-0.2) /100WBC Sodium 141 (135-145) mmol/L Potassium 3.9 (3.3-5.1) mmol/L Chloride 107 (96-108) mmol/L Carbon Dioxide 27 (22-29) mmol/L Anion Gap 11 L (12-20) BUN 7 L (9-16) mg/dL Creatinine 0.68 (0.5-1.4) mg/dL Estim Creat Clear Calc 98.2 Estimated GFR > 60 Random Glucose 90 (60-115) mg/dL Calcium 9.3 (8.4-10.2) mg/dL Total Bilirubin 0.3 (0.0-1.0) mg/dL AST 21 (5-31) U/L ALT 13 (0-31) U/L Alkaline Phosphatase 80 (39-117) U/L Total Protein 8.0 (6.5-8.0) g/dL Albumin 4.2 (3.5-5.0) g/dL Lipase 17 (8-78) U/L Beta HCG, Quant < 2 mIU/mL Influenza Type A (PCR) NEGATIVE (Negative) Influenza Type B (PCR) NEGATIVE (Negative) RSV RNA Qual (PCR) NEGATIVE (Negative) SARS-CoV-2 RNA (RT-PCR) NEGATIVE (Negative) Discharge Plan Discharge Clinical Impression: Dizziness Patient Disposition: Left W/O Completing Treatment Prescriptions: No Action No Known Home Meds Discharge Date/Time: 07/24/24 20:55
[2024-07-24 16:08] LABS: MANUAL DIFF FLAG NO
[2024-07-24 16:10] LABS: Basophils Percent Auto 0.9 % (0-2); Eosinophils Percent Auto 0.9 % (0-4); Hemoglobin 10.8 g/dl (12.0-16.0); Imm Gran Abs Auto 0.01 X10*3/uL (0.00-0.03); Imm Gran Pct Auto 0.2 % (0.0-0.4); Lymphocytes Absolute Auto 1.5 X10*3/uL (1.2-4.9); Lymphocytes Percent Auto 34.4 % (20-40); Mean Corpuscular HGB Conc 32.7 g/dl (31.0-35.0); Mean Corpuscular Hemoglobin 29.1 pg (27.0-33.0); Mean Corpuscular Volume 88.9 fL (80.0-98.0); Mean Platelet Volume 10.2 fL (9.4-12.3); Monocytes Absolute Auto 0.4 X10*3/uL (0.1-1.2); Monocytes Percent Auto 8.7 % (2-11); Neutrophils Absolute Auto 2.5 x10*3/uL (2.0-8.3); Neutrophils Percent Auto 54.9 % (45-73); Platelet Count 236 X10*3/uL (160-400); Red Blood Count 3.71 X10*6/uL (4.20-5.50); Red Cell Distribution Width 14.4 % (11.0-16.0); White Blood Count 4.5 X10*3/uL (4.8-10.8)
[2024-07-24 16:33] LABS: Alanine Aminotransferase 13 U/L (0-31); Albumin Level 4.2 g/dL (3.5-5.0); Anion Gap 11 (12-20); Aspartate Amino Transferase 21 U/L (5-31); Bilirubin Total 0.3 mg/dL (0.0-1.0); Blood Urea Nitrogen 7 mg/dL (9-16); Calcium 9.3 mg/dL (8.4-10.2); Carbon Dioxide 27 mmol/L (22-29); Chloride 107 mmol/L (96-108); Creatinine Clr Calc Pharmacy 98.2; Estimated Glomerular Filt Rate > 60; Glucose Random 90 mg/dL (60-115); Lipase 17 U/L (8-78); Potassium 3.9 mmol/L (3.3-5.1); Sodium 141 mmol/L (135-145)
[2024-07-24 16:38] LABS: HCG Quantitative < 2 mIU/mL
[2024-07-24 17:18] LABS: Influenza A PCR NEGATIVE (Negative); Influenza B PCR NEGATIVE (Negative); Resp Syncy Virus RNA Qual PCR NEGATIVE (Negative); SARS COV2 PCR INHOUSE NEGATIVE (Negative)
[2024-07-24 17:32] VITALS: BP 143/71; PULSE 83; RESP 16; TEMP 36.6; O2SAT 95
[2024-07-24 17:40] LABS: Alkaline Phosphatase 80 U/L (39-117)
--- OUTSIDE RECORDS SUMMARY | 2024-07-24 20:48 | XMS_ITS | Clinical Summary ---
Author Organization [facility] Address [address] [place] [address] Care Team Providers Care Analyst Market Intelligence Name Role Phone Unavailable Primary Care Provider Unavailabl e Social History Tobacco Use Types Packs/Day Years Used Date Smoking Tobacco: Never Assessed Comments Unknown Sex and Gender Information Value Date Recorded Sex Assigned at Not on file Legal Sex Female 2:16 AM EST Gender Identity Not on file Sexual Orientation Not on file Plan of Treatment Health Maintenance Due Date Last Done Comments Breast Cancer Screening 1983 DTaP,Tdap,and Td Vaccines (1 - Tdap) 2002 Hepatitis B Vaccines (1 of 3 - 19+ 3-dose series) 2002 Cervical Cancer Screening: P ap Smear 01/29/2004 Depression Screening 04/18/2022 HIV Screening 04/18/2022 Hepatitis C Screening 04/18/2022 Social Influencers of Health Screening 04/18/2022 COVID-19 Vaccine (2023-2 5 season) 2024 Influenza Vaccine (#1) 2024 HIB Vaccines Aged Out No longer eligi ble based on patient's age to complete this topic HPV Vaccines Aged Out No longer eligi ble based on patient's age to complete this topic Hepatitis A Vaccines Aged Out No long er eligible based on patient's age to complete this topic IPV Vaccines Aged Out No longer eligi ble based on patient's age to complete this topic MMR Vaccines Aged Out No longer eligi ble based on patient's age to complete this topic Meningococcal ACWY Vaccine Aged Out N o longer eligible based on patient's age to complete this topic Meningococcal B Vacine Aged Out No lo nger eligible based on patient's age to complete this topic Pneumococcal Vaccine: Pediat rics (0 to 5 Years) and At-Risk Patients (6 to 64 Years) Aged Out No longer eligible b ased on patient's age to complete this topic RSV Immunization Patients Un corey 20 months Aged Out No longer eligible b ased on patient's age to complete this topic Varicella Vaccines Aged Out No longer eligible based on patient's age to complete this topic
--- OUTSIDE RECORDS SUMMARY | 2024-07-24 20:48 | XMS_ITS ---
Author Organization [facility] Address [address] [place], [place] [id number] Care Team Providers Care Ticket Manager Name Role Phone [facility], Acute Trauma Care [facility] Care Provider Unavailable Hermelinda Krishnan REASON FOR VISIT B.C Encounters Encounter Location Date Provider Diagnosis [facility] [address] [place] [phone] 06/27/2024 Hermelinda Krishnan Plan Of Treatment No Information Progress Notes * Jose GILLIAMDOB:1985 (39 yo F)Acc No.[id number]:06/27/2024 Case Management Patient:?Jose GILLIAM Provider:?Hermelinda Krishnan :1985???Age:39 Y???Sex:Female D ate:06/27/2024 Address:[address] [place], [place] [phone] Pcp:Acute Trauma Care [facility] Practice Subjective: * Chief Complaints: * ???1. B.C. * HPI: ???Social Service:?Date of encounter?06/27/2024.?Referral Source?walk-in, self.?Interpretation for medical provider? Certificate.?Action Taken?Social needs? certificate.?Advocacy?none.?Follow-up Required:?yes. Pt comprehension?Pt agrees with plan, Patient understood process and assisted with process.?Action taken (old)?form completion, Items given to client, item obtained, Letter given to patient after photo copy made.? * Medical History:? Objective: * Vitals:? Assessment: Plan: * Treatment: * Images: Billing Information: * Visit Code:? * Procedure Codes:? Care Plan Details* * Sign off status: Completed true * Provider:?Hermelinda Krishnan Date:? Generated for Diana linares/Izabel/Clarisa on:?07/24/2024 08:48 PM EDT History and Physical Notes * HPI (History of Present Illness) Category Sub-Category Detail Notes Social Service Referral Source walk-in, self Interpretation for medical provider Nilda h Certificate Action taken (old) form completion, Ite ms given to client, item obtained, Letter given to patient after photo copy made Advocacy none Follow-up Required: yes Pt comprehension Pt agrees with plan, Patient understood process and assisted with process Action Taken Social needs: certificate Date of encounter 06/27/2024
--- OUTSIDE RECORDS SUMMARY | 2024-07-24 20:48 | XMS_ITS ---
Author Organization [facility] Address [address] [place], [place] [phone] Care Team Providers Care Director Of Marketing Operations Name Role Phone [facility], Acute Trauma Care [facility] Care Provider Unavailable Hermelinda Krishnan Unavailable [phone] Encounters Encounter Location Date Provider Diagnosis [facility] [address] [place] [phone] 11/10/2023 Hermelinda Krishnan Plan Of Treatment No Information Progress Notes * Jose GILLIAMDOB:1985 (38 yo F)Acc No.[id number]:11/10/2023 Case Management Patient:?Jose Gilliam Provider:?Hermelinda Krishnan :1985???Age:38 Y???Sex:Female D ate:11/10/2023 Address:[address] [place], [place] [phone] Subjective: * Chief Complaints: * ??? * HPI: ???Social Service:?Date of encounter?[id number].?Referral Source?walk-in, self, returning client.?Interpretation for medical provider?Mass ID, Mail pick out hand.?Follow-up Required:?yes: CM.?Pt comprehension?Pt agrees with plan, Patient understood process and assisted with process.?Action taken (old)?Items given to client: mail.? * Medical History:? Objective: Assessment: Plan: * Treatment: * Images: Billing [...] Interpretation for medical provider Mass ID, Mail pick out hand Action taken (old) Items given to rosa t: mail Follow-up Required: yes: CM Pt comprehension Pt agrees with plan, Patient understood process and assisted with process Date of encounter [id number]
--- OUTSIDE RECORDS SUMMARY | 2024-07-24 20:48 | XMS_ITS | Patient Health Record ---
Author Organization [facility] Address [address] [place], [place] [phone] Care Team Providers Care Biztalk Software Developer Name Role Phone [facility], Acute Trauma Care [facility] Care Provider Unavailable Hermelinda Krishnan Unavailable [phone] Kishor Monge Unavailable [phone] Reason For Referral No Information Encounters Encounter Location Date Provider Diagnosis [facility] [address] [place] [id number] 08/15/2023 Kishor Monge [facility] [address] [place] [id number] 11/10/2023 Hermelinda Krishnan [facility] [phone] 03/21/2024 Hermelinda Krishnan [facility] [address] [place] [id number] 06/27/2024 Hermelinda Krishnan Plan Of Treatment No Information Insurance Providers Payer Name Payer Address Payer Phone Subscriber Number Group Number Insured Name Patient Relationship to Insured Coverage Start Date Coverage End Date [facility] Be Healthy [address] [place] [address] [phone] [id number] Jose Dc Self - patient is the insured [place] Medicaid Standard [address] [place] [address] [phone] [id number] Jose Dc Self - patient is the insured
== END 2024-07-24 20:55 | disposition left against medical advice (07) ==
LOC: HO.ED 20:46
PROVIDERS: Physician Assistant; Emergency Provider Emergency Medicine; PCP Pediatrics
DX: R42 Dizziness and giddiness (principal); Z03.818 Encounter for observation for suspected exposure to other biological agents ruled out
CPT/HCPCS: 0241U; 80053; 83690; 84702; 85025; 93005; 99283

== ENCOUNTER → 2024-07-24 15:15 | Outpatient (BNV) | payer OTHER, SELFPAY | PROVIDERS: Visit Provider Internal Medicine | DX: R42 Dizziness and giddiness (principal) | CPT/HCPCS: 93010 ==